=== PATIENT | male | born 1960 | race Caucasian/White ===

== ENCOUNTER 2016-10-23 06:17 | Observation (INO) | payer BC ==
[2016-10-22 12:27] VITALS: BMI 34.5
[~2016-10-23 06:17] MED LIST: ALPRAZolam 0.25 MG TAB PO PRN; ALPRAZolam 0.5 MG TAB PO PRN; ATORVASTATIN 80 MG TAB PO STA; NITROGLYCERIN SL TABS 0.4 MG TAB SUBLINGUAL PRN; SODIUM CHLORIDE 0.9% 1,000 ML in EMPTY BAG 1 BAG IV ONE
[2016-10-23 06:54] VITALS: RESP 18
[2016-10-23 07:21] LABS: Glucose,Whole Blood 204 mg/dL (75-99)
[2016-10-23 07:24] LABS: Basophils # (A) 0.1 k/uL (0-0.2); Basophils % (A) 1 %; CH 31.2; CHCM 34.6; Eosinophils # (A) 0.2 k/uL (0-0.7); Eosinophils % (A) 3 %; HCT 45.5 % (39.0-53.0); HDW 2.55; HGB 15.6 gm/dL (13.0-17.5); Luc # (Auto) 0.13; Luc % (Auto) 2; Lymphocytes # (A) 2.1 k/uL (1.0-4.8); Lymphocytes % (A) 30 %; MCH 31.1 pg (25.0-35.0); MCHC 34.4 g/dL (31.0-37.0); MCV 90.3 fL (80.0-100.0); Mean Platelet Volume 6.5; Monocytes # (A) 0.5 k/uL (0-1.0); Monocytes % (A) 7 %; Neutrophils # (A) 3.9 k/uL (1.3-7.7); Neutrophils % (A) 57 %; RBC 5.04 m/uL (4.30-5.90); RDW 12.5 % (11.5-15.5); WBC 6.9 k/uL (3.8-10.6); WBC (Perox) 6.95
[2016-10-23] MEDS ORDERED: INSULIN LISPRO (humaLOG) 300 UNIT/3 ML VIAL SQ ONE (07:30)
[2016-10-23 07:33] LABS: Anion Gap 10 mmol/L; Blood Urea Nitrogen 10 mg/dL (9-20); Calcium 9.9 mg/dL (8.4-10.2); Carbon Dioxide 26 mmol/L (22-30); Chloride 103 mmol/L (98-107); Glucose 217 mg/dL (74-99); Non-African American GFR(MDRD) >60 (>60 ml/min/1.73 sqM); Potassium 4.4 mmol/L (3.5-5.1); Sodium 139 mmol/L (137-145)
[2016-10-23] MEDS ORDERED: MIDAZOLAM 2 MG/2 ML VIAL IVP ONE (08:21)
[2016-10-23] MEDS ORDERED: LIDOCAINE 2% INJ 20 MG/ML SQ ONE (08:26)
[2016-10-23] MEDS: MIDAZOLAM 2 MG/2 ML VIAL IVP ONE ×2 (08:39→09:25)
[2016-10-23] MEDS ORDERED: BIVALIRUDIN BOLUS 250 MG/50 ML IV ONE (09:14)
[2016-10-23] MEDS ORDERED: BIVALIRUDIN 250 MG in SODIUM CHLORIDE 0.9% 50 ML IV ONE (09:15)
[2016-10-23] MEDS ORDERED: DIAZEPAM 5 MG/ML 2 ML SYRINGE IVP ONE (09:25)
[2016-10-23] MEDS ORDERED: HYDROmorphone 2 MG/ML 1 ML SYRINGE IVP ONE (09:26)
[2016-10-23] MEDS: NITROGLYCERIN 1000MCG/10ML SYRINGE INTRACORON ONE ×2 (09:27→09:38)
[2016-10-23] MEDS ORDERED: niCARdipine Syringe (1,000 mcg/10 mL) INTRACORON ONE (09:39)
[2016-10-23] MEDS ORDERED: CLOPIDOGREL 75 MG TAB PO ONE (09:50)
[2016-10-23] MEDS ORDERED: IOHEXOL 350 MG/ML 100 ML BOTTLE INJ ONE (09:50)
[2016-10-23] MEDS ORDERED: MAG HYDROX/AL HYDROX/SIMETH 30 ML CUP PO PRN (09:53)
[2016-10-23] MEDS ORDERED: ATROPINE SULFATE 0.1 MG/ML 10ML SYRINGE IV PRN (09:53)
[2016-10-23] MEDS ORDERED: ZOLPIDEM 5 MG TAB PO PRN (09:53)
[2016-10-23] MEDS ORDERED: NITROGLYCERIN SL TABS 0.4 MG TAB SUBLINGUAL PRN (09:53)
[2016-10-23] MEDS ORDERED: RX INFO: IV CONTRAST WAS GIVEN 1 EACH MISC MISCELLANE PRN (09:53)
[2016-10-23] MEDS ORDERED: SODIUM CHLORIDE 0.9% 1,000 ML IV SCH (10:00)
[2016-10-23] MEDS ORDERED: SODIUM CHLORIDE 0.9% 1,000 ML IV ONE (13:00)
[2016-10-23] MEDS: INSULIN LISPRO (humaLOG) 300 UNIT/3 ML VIAL SQ SCH ×3 (14:22→21:13)
[2016-10-23 17:16] LABS: Glucose,Whole Blood 241 mg/dL (75-99)
[2016-10-23] MEDS: HYDROmorphone 1 MG/ML 1 ML SYRINGE IVP PRN ×2 (17:57→21:11)
[2016-10-23] MEDS ORDERED: INSULIN GLARGINE 100 UNIT/ML 10 ML VIAL SQ SCH (21:00)
[2016-10-23 21:08] LABS: Glucose,Whole Blood 228 mg/dL (75-99)
[2016-10-23] MEDS: ASPIRIN 81 MG CHEW PO SCH (21:11)
[2016-10-24 05:34] LABS: Basophils % (A) 1 %; CH 31.5; CHCM 34.5; Eosinophils # (A) 0.2 k/uL (0-0.7); Eosinophils % (A) 3 %; HGB 14.8 gm/dL (13.0-17.5); Luc # (Auto) 0.17; Luc % (Auto) 2; Lymphocytes # (A) 2.2 k/uL (1.0-4.8); Lymphocytes % (A) 29 %; MCH 31.5 pg (25.0-35.0); MCHC 34.4 g/dL (31.0-37.0); MCV 91.6 fL (80.0-100.0); Mean Platelet Volume 6.5; Monocytes # (A) 0.5 k/uL (0-1.0); Monocytes % (A) 7 %; Neutrophils # (A) 4.6 k/uL (1.3-7.7); Neutrophils % (A) 59 %; RDW 12.9 % (11.5-15.5); WBC 7.7 k/uL (3.8-10.6)
[2016-10-24 05:51] LABS: Anion Gap 8 mmol/L; Blood Urea Nitrogen 14 mg/dL (9-20); Calcium 9.3 mg/dL (8.4-10.2); Carbon Dioxide 25 mmol/L (22-30); Chloride 103 mmol/L (98-107); Glucose 146 mg/dL (74-99); Non-African American GFR(MDRD) >60 (>60 ml/min/1.73 sqM); Potassium 3.9 mmol/L (3.5-5.1); Sodium 136 mmol/L (137-145)
[2016-10-24 05:53] LABS: Glucose,Whole Blood 150 mg/dL (75-99)
[2016-10-24] MEDS: INSULIN LISPRO (humaLOG) 300 UNIT/3 ML VIAL SQ SCH (06:05)
[2016-10-24 07:02] VITALS: TEMP 97.1
--- NOTE | 2016-10-24 07:10 | CC ---
DATE OF SERVICE: 10/23/2016 CARDIAC CATH AND PERCUTANEOUS CORONARY INTERVENTION PERFORMING PHYSICIAN: Rosendo Us MD, cash application clerk. PROCEDURE PERFORMED: 1. Selective left and right coronary angiogram. 2. SVG angiogram x1. 3. Left internal mammary artery angiogram. 4. Successful stenting of the diagonal branch of the LAD using 2.5 x 23 mm Xience JEZ, which was postdilated using 2.75 mm balloon with good angiographic results. INDICATION: This is a pleasant 56-year-old gentleman who is known to have coronary artery disease and coronary artery bypass grafting with last heart catheterization was performed in 2015 and it sowed at that time occluded LAD and occluded right coronary artery with mild disease involving the left circumflex with patent CARDOSO to LAD as well as occluded vein graft to the RCA, where at that point, the patient underwent successful stenting of the RCA as well as successful stenting of the diagonal branch of the LAD. Lately, he has been experiencing chest discomfort consistent with angina. He was brought today to undergo a heart catheterization. APPROACH: Right common femoral artery. COMPLICATIONS: None. LEVEL OF SEDATION: Moderate with a sedation length about an hour. PROCEDURE DESCRIPTION: After obtaining an informed consent, the patient was brought to the cardiac slab puller. The right common femoral artery was cannulated using micropuncture technique. The micropuncture wire passed easily, then I placed a 6-Burundian sheath in the right common femoral artery. Subsequently, I did selective right and left coronary angiogram using multipurpose catheter for the left coronary system and JR4 for the right coronary artery. I did SVG angiogram to the RCA using JR4 catheter and I did left internal mammary artery angiogram using an IM catheter. After that, I did intervene on the diagonal, please see a separate paragraph for that. SELECTIVE CORONARY ANGIOGRAM: 1. The left main is angiographically normal. It bifurcates into the left circumflex and left anterior descending artery. 2. The left circumflex is a large-caliber vessel and it is a nondominant vessel. The proximal left circumflex appeared to have mild disease only. The mid left circumflex appeared to have mild disease only and gives rise into a large obtuse marginal branch, which seems to be normal. The left circumflex after that is 100% occluded in the AV groove. 3. Left Anterior Descending Artery: The proximal LAD appeared to have mild disease only. The mid LAD is occluded just after the bifurcation of a diagonal, which is a [id number] diagonal with severe disease, seems to be in-stent restenosis. 4. Right Coronary Artery: The right coronary artery is 100% occluded in the proximal portion. CORONARY BYPASS ANGIOGRAM: 1. The SVG to right coronary artery appeared to have severe disease in the proximal portion appeared to be in the range of 70% to 80%. 2. The CARDSOO to LAD is patent. PCI OF THE DIAGONAL: Anticoagulation was initiated using Angiomax. Subsequently, I did exchange my 11 cm 6-Burundian sheath into 23 cm 6-Burundian sheath just to negotiate tortuosity in the iliac. After that, I did engage the left main using JL4 catheter. Subsequently, I did wire the diagonal using a whisper wire. I did balloon angioplasty using 2.5 x 15 mm balloon. After that, I tried to advance 2.5 x 23 mm Xience JEZ but the stent would not cross the proximal part of the LAD, so at that point, I did wire the diagonal using a run-through wire. With a run-through wire, I was able to get the stent across the lesion, where the stent was positioned under fluoroscopy guidance and then it was deployed under 12 atmospheres for 20 seconds. I postdilated that stent using a 2.75 x 15 mm NC balloon. The following angiogram showed good angiographic result without complication and without dissection. CONCLUSION: 1. Severe triple-vessel coronary artery disease. 2. Occluded left anterior descending artery, which is protected by left internal mammary artery. 3. Occluded distal left circumflex in the AV groove after a large first obtuse marginal branch, which seems to be normal. 4. Occluded right coronary artery, which is protected SVG graft to the right coronary artery with severe disease involving the proximal portion of the SVG graft. 5. Severe in-stent restenosis involving a diagonal branch, which is a large-sized diagonal. 6. Successful stenting of the diagonal using 2.5 x 23 mm Xience JEZ with a good angiographic result. POSTPROCEDURE MANAGEMENT: 1. Dual antiplatelet therapy. 2. Risk factor modification. 3. The patient will be scheduled to undergo stenting of the SVG graft to the right coronary artery.
[2016-10-24] MEDS: ASPIRIN 81 MG CHEW PO SCH (08:57)
[2016-10-24] MEDS ORDERED: ATORVASTATIN 80 MG TAB PO SCH (09:00)
[2016-10-24] MEDS ORDERED: LISINOPRIL 20 MG TAB PO SCH (09:00)
[2016-10-24] MEDS ORDERED: CARVEDILOL 3.125 MG TAB PO SCH (09:00)
[2016-10-24] MEDS ORDERED: CLOPIDOGREL 75 MG TAB PO SCH (09:00)
[2016-10-24 10:27] VITALS: BP 140/73; PULSE 69
--- NOTE | 2016-10-24 10:33 | P.DS ---
Providers Date of admission: 10/23/16 22:42 October 232016 Attending physician: Rosendo Us Consults: 10/23/16 09:53 Consult Physician Routine Consulting Provider: [facility] Consult Reason/Comments: Post Interventional patient Do you want consulting provider notified?: Already Contacted Primary care physician: Ernestine Gudino [facility] Hospital Course: This is a pleasant 56-year-old gentleman who was admitted to the hospital yesterday and underwent heart catheterization on successful stenting of the diagonal branch of the LAD with a good angiographic results and without any complication. He denies having any chest pain or discomfort or difficulty breathing or heart racing or fluttering. The patient is going to be discharged home on dual antiplatelet therapy and I will follow-up with the patient next week in the office. The procedure was performed from the right groin which seems to be soft and nontender and without any bruises. Plan - Discharge Summary Discharge Medication List Lisinopril [Prinivil] 20 mg PO QAM 09/30/14 [History] Carvedilol [Coreg] 3.125 mg PO DAILY 06/05/15 [History] Insulin Glargine [Lantus] 60 unit SQ HS 07/26/15 [History] Aspirin 162 mg PO DAILY 10/22/16 [History] Atorvastatin [Lipitor] 80 mg PO DAILY 10/22/16 [History] Clopidogrel [Plavix] 75 mg PO DAILY 10/22/16 [History] Follow up Appointment(s)/Referral(s): Rosendo Us MD [STAFF PHYSICIAN] - 10/28/16 4:00 pm Patient Instructions/Handouts: *[facility] - After Heart Catheterization - Bed And Breakfast Cook Instructions, Heart Healthy Diet (DC), Heart Catheterization (DC ), Coronary Angioplasty (DC)
== END 2016-10-24 10:57 | disposition home or self-care (01) ==
LOC: CATHCVL 06:17 → 6SEL 14:14 → CATHCVL 22:41 → 6SEL 22:42
PROVIDERS: ADMIT Internal Medicine Interventional Cardiology; ATTEND Internal Medicine Interventional Cardiology
DX: I25.119 Atherosclerotic heart disease of native coronary artery with unspecified angina pectoris (principal); E11.9 Type 2 diabetes mellitus without complications; E78.5 Hyperlipidemia, unspecified; I10 Essential (primary) hypertension; I25.810 Atherosclerosis of coronary artery bypass graft(s) without angina pectoris; I25.82 Chronic total occlusion of coronary artery; F17.290 Nicotine dependence, other tobacco product, uncomplicated; Z79.02 Long term (current) use of antithrombotics/antiplatelets; Z79.82 Long term (current) use of aspirin; Z79.899 Other long term (current) drug therapy; Z95.1 Presence of aortocoronary bypass graft; Z95.5 Presence of coronary angioplasty implant and graft
CPT/HCPCS: 93455; 80048 ×2; 85025 ×2; G0378 ×2; C9600; C1769 ×6; C1887; C1725 ×2; C1894; C1874; J2001; J2250; J1170 ×2; Q9967; J0583; 93005

== ENCOUNTER 2016-11-05 07:12 | Day surgery (SDC) | payer BC ==
[2016-10-31 14:57] VITALS: BMI 35.2
[~2016-11-05 07:12] MED LIST changes: +ASPIRIN 325 MG TAB PO STA
[2016-11-05 07:38] LABS: Glucose,Whole Blood 205 mg/dL (75-99)
[2016-11-05] MEDS ORDERED: INSULIN LISPRO (humaLOG) 300 UNIT/3 ML VIAL SQ ONE (07:40)
[2016-11-05] MEDS ORDERED: diphenhydrAMINE 50 MG/ML 1 ML VIAL IVP ONE (09:14)
[2016-11-05] MEDS ORDERED: MIDAZOLAM 2 MG/2 ML VIAL IV ONE (09:16)
[2016-11-05] MEDS ORDERED: LIDOCAINE 2% INJ 20 MG/ML SQ ONE (09:24)
[2016-11-05] MEDS ORDERED: BIVALIRUDIN BOLUS 250 MG/50 ML IV ONE (09:30)
[2016-11-05] MEDS ORDERED: BIVALIRUDIN 250 MG in SODIUM CHLORIDE 0.9% 50 ML IV ONE ×2 (09:32→10:08)
[2016-11-05] MEDS ORDERED: niCARdipine Syringe (1,000 mcg/10 mL) INTRACORON ONE (10:13)
[2016-11-05] MEDS ORDERED: NITROGLYCERIN 1000MCG/10ML SYRINGE INTRACORON ONE (10:14)
[2016-11-05] MEDS ORDERED: CLOPIDOGREL 75 MG TAB PO ONE (10:17)
[2016-11-05] MEDS ORDERED: IOHEXOL 350 MG/ML 100 ML BOTTLE INJ ONE (10:17)
[2016-11-05] MEDS ORDERED: HYDROmorphone 1 MG/ML 1 ML SYRINGE ONE ×3 (10:38→16:34)
--- NOTE | 2016-11-05 11:14 | PTCA ---
DATE OF SERVICE: 11/05/2016 PERFORMING PHYSICIAN: Rosendo Us M.D., Music Copyist. PROCEDURE PERFORMED: 1. Selective angiogram of the SVG to RCA. 2. Successful stenting of the ostial/proximal SVG to RCA using 3.25 x 18 and 3.5 x 12 mm Xience JEZ with a good angiographic result. 3. Selective right common femoral artery angiogram. INDICATION: This is a pleasant 56-year-old gentleman who is known to have coronary artery disease, who underwent a heart catheterization recently and was found to have severe disease involving the SVG to the RCA. He was brought today to undergo a PCI of that graft. APPROACH: Right common femoral artery. COMPLICATIONS: None. LEVEL OF SEDATION: Moderate with a sedation length of an hour. PROCEDURE DESCRIPTION: After obtaining an informed consent, the patient was brought to the cardiac laborer concrete plant. Right common femoral artery was cannulated using micropuncture technique, the micropuncture wire passed easily, then I placed a 6 Hungarian sheath in the right common femoral artery. Subsequently, I started anticoagulation using Angiomax. After that, I did engage the SVG to RCA using a multipurpose catheter. I did selective right SVG angiogram. After that, I did wire that graft short using a short whisper wire. After that, I did balloon angioplasty using 2.5 x 12 mm balloon which was inflated twice in the graft. Subsequently, I did deploy 3.25 x 18 mm and 3.5 x 12 mm stents in the ostial/proximal part of the graft. I tried to post dilate using 3.5 balloon but the balloon will not cross the proximal part of the stent because the stent was not well deployed. At that point, I tried 30 x 12 mm semicompliant balloon. Then I was able to advance 3.5 noncompliant balloon, where the balloon was inflated under 28 atmospheres for 20 seconds and I was able to deploy the stent. There was some residual stenosis, I will say is about 10% to 20% only. Good flow in the SVG was seen. POSTPROCEDURE MANAGEMENT: 1. Dual antiplatelet therapy. 2. Risk factors modification. 3. Follow up with the patient.
[2016-11-05] MEDS ORDERED: SODIUM CHLORIDE 0.9% 1,000 ML IV SCH (12:15)
[2016-11-05 13:26] LABS: Glucose,Whole Blood 140 mg/dL (75-99)
[2016-11-05] MEDS ORDERED: HYDROcodone/APAP 5-325MG 1 EACH TAB PO STA (19:27)
--- NOTE | 2016-11-05 20:02 | LTR ---
November 05, 2016 RE: Davis Riley Ronnie Dear Ernestine: Mr. Davis Riley underwent successful stenting of the vein graft to the right coronary artery with a good angiographic result and without any complication. I want to thank you for allowing me to participate in his care. Please do not hesitate to call if you have any question or concerns. Sincerely, AMANUEL LAGUNA MD
[2016-11-05 20:55] LABS: Glucose,Whole Blood 265 mg/dL (75-99)
[2016-11-05] MEDS ORDERED: INSULIN GLARGINE 100 UNIT/ML 10 ML VIAL SQ SCH (21:00)
[2016-11-05 22:22] VITALS: RESP 18
[2016-11-06 05:44] LABS: Glucose,Whole Blood 161 mg/dL (75-99)
[2016-11-06 06:41] LABS: Non-African American GFR(MDRD) >60 (>60 ml/min/1.73 sqM)
[2016-11-06] MEDS ORDERED: CARVEDILOL 3.125 MG TAB PO SCH (07:30)
[2016-11-06] MEDS ORDERED: CLOPIDOGREL 75 MG TAB PO SCH (09:00)
[2016-11-06] MEDS ORDERED: ASPIRIN 81 MG CHEW PO SCH (09:00)
[2016-11-06] MEDS ORDERED: LISINOPRIL 20 MG TAB PO SCH (09:00)
[2016-11-06] MEDS ORDERED: ATORVASTATIN 80 MG TAB PO SCH (09:00)
[2016-11-06 09:28] VITALS: BP 135/73; PULSE 63; TEMP 96.8
[2016-11-06 10:08] LABS: Basophils # (A) 0.1 k/uL (0-0.2); Basophils % (A) 1 %; CH 31.8; CHCM 35.1; Eosinophils # (A) 0.2 k/uL (0-0.7); Eosinophils % (A) 2 %; HCT 45.8 % (39.0-53.0); HDW 2.58; HGB 16.3 gm/dL (13.0-17.5); Luc # (Auto) 0.11; Luc % (Auto) 2; Lymphocytes % (A) 28 %; MCH 32.4 pg (25.0-35.0); MCHC 35.6 g/dL (31.0-37.0); Mean Platelet Volume 6.8; Monocytes # (A) 0.5 k/uL (0-1.0); Monocytes % (A) 7 %; Neutrophils # (A) 4.3 k/uL (1.3-7.7); Neutrophils % (A) 60 %; RBC 5.04 m/uL (4.30-5.90); RDW 12.6 % (11.5-15.5); WBC 7.1 k/uL (3.8-10.6); WBC (Perox) 6.83
[2016-11-06 10:23] LABS: Anion Gap 12 mmol/L; Blood Urea Nitrogen 14 mg/dL (9-20); Calcium 9.8 mg/dL (8.4-10.2); Carbon Dioxide 18 mmol/L (22-30); Chloride 103 mmol/L (98-107); Glucose 211 mg/dL (74-99); Non-African American GFR(MDRD) >60 (>60 ml/min/1.73 sqM); Potassium 4.6 mmol/L (3.5-5.1); Sodium 133 mmol/L (137-145)
--- NOTE | 2016-11-07 09:34 | DS ---
DATE OF ADMISSION: 11/05/2016 DATE OF DISCHARGE: 11/06/2016 BRIEF HISTORY: This is a pleasant 56-year-old gentleman who was admitted to the hospital yesterday and underwent successful stenting of ostial/proximal SVG to RCA with a good angiographic result and without any complications, from right groin approach. From a cardiovascular-stand point of view, he is doing good and he is asymptomatic. The right groin is soft and nontender and without any bruises. The patient is going to be discharged home on dual antiplatelet therapy and statin. I will follow up with the patient in a week in the office.
== END 2016-11-06 10:35 | disposition home or self-care (01) ==
LOC: CATHCVL 07:12 → 6SEL 10:19 → CATHCVL 11-06 10:35
PROVIDERS: ATTEND Internal Medicine Interventional Cardiology
DX: I25.10 Atherosclerotic heart disease of native coronary artery without angina pectoris (principal); Z95.5 Presence of coronary angioplasty implant and graft; Z95.1 Presence of aortocoronary bypass graft; E78.5 Hyperlipidemia, unspecified; I10 Essential (primary) hypertension; R07.89 Other chest pain; I73.9 Peripheral vascular disease, unspecified; E66.9 Obesity, unspecified; Z68.36 Body mass index [BMI] 36.0-36.9, adult; Z98.84 Bariatric surgery status; E11.9 Type 2 diabetes mellitus without complications; Z79.02 Long term (current) use of antithrombotics/antiplatelets; Z79.82 Long term (current) use of aspirin; Z79.4 Long term (current) use of insulin; Z79.899 Other long term (current) drug therapy; Z88.6 Allergy status to analgesic agent; Z87.891 Personal history of nicotine dependence
CPT/HCPCS: 80048; 82565; 85025; 99152; 99153; C9604; C1769 ×5; C1887; C1725 ×3; C1894; C1874; J2001; J2250; J1200; Q9967; J1170; J0583; 93454

== ENCOUNTER 2017-05-23 09:07 | Day surgery (SDC) | payer BC ==
[2017-05-23 10:28] LABS: Glucose,Whole Blood 142 mg/dL (75-99)
[2017-05-23] MEDS ORDERED: LIDOCAINE 2% INJ 20 MG/ML (20 ML MDV) ONE (10:38)
[2017-05-23] MEDS ORDERED: MIDAZOLAM 2 MG/2 ML VIAL ONE ×2 (10:46→11:09)
[2017-05-23] MEDS ORDERED: MIDAZOLAM 2 MG/2 ML VIAL IV ONE ×2 (10:53→11:10)
[2017-05-23] MEDS ORDERED: LIDOCAINE 2% INJ 20 MG/ML SQ ONE (10:58)
[2017-05-23] MEDS ORDERED: fentaNYL (PF) 50 MCG/ML 2 ML AMP ONE (11:00)
[2017-05-23] MEDS ORDERED: fentaNYL (PF) 50 MCG/ML 2 ML AMP IV ONE (11:02)
[2017-05-23] MEDS ORDERED: BIVALIRUDIN 250 MG in SODIUM CHLORIDE 0.9% 50 ML IV ONE (11:30)
[2017-05-23] MEDS ORDERED: BIVALIRUDIN BOLUS 250 MG/50 ML IV ONE (11:30)
[2017-05-23] MEDS ORDERED: niCARdipine 25 MG/10 ML VIAL ONE (11:38)
[2017-05-23] MEDS ORDERED: CLOPIDOGREL 75 MG TAB ONE (11:54)
[2017-05-23] MEDS ORDERED: CLOPIDOGREL 75 MG TAB PO ONE (11:56)
[2017-05-23] MEDS ORDERED: IOHEXOL 350 MG/ML 125ML BOTTLE INJ ONE (11:57)
[2017-05-23] MEDS ORDERED: RX INFO: IV CONTRAST WAS GIVEN 1 EACH MISC MISCELLANE PRN (12:03)
[2017-05-23] MEDS ORDERED: ZOLPIDEM 5 MG TAB PO PRN (12:03)
[2017-05-23] MEDS ORDERED: NITROGLYCERIN SL TABS 0.4 MG TAB SUBLINGUAL PRN (12:03)
[2017-05-23] MEDS ORDERED: ATROPINE SULFATE 0.1 MG/ML 10ML SYRINGE IV PRN (12:03)
[2017-05-23] MEDS ORDERED: MAG HYDROX/AL HYDROX/SIMETH 30 ML CUP PO PRN (12:03)
[2017-05-23] MEDS ORDERED: SODIUM CHLORIDE 0.9% 1,000 ML IV SCH (12:15)
--- NOTE | 2017-05-23 12:47 | CC ---
CARDIAC CATHETERIZATION REPORT DATE OF SERVICE: 05/23/2017 PERFORMING PHYSICIAN: Rosendo Us MD, Flat Sheet Maker. PROCEDURE PERFORMED: 1. Selective left and right coronary angiogram. 2. CARDOSO to LAD angiogram. 3. SVG to RCA angiogram. 4. Successful stenting of the SVG to RCA using 3.5 x 24 mm Promus Premier drug-eluting stent with good angiographic results. INDICATION: This is a very pleasant 56-year-old gentleman who is known to have coronary artery disease with the last heart catheterization in October of 2016, revealed severe 2-vessel coronary artery disease with occluded LAD and occluded RCA with patent CARDOSO to LAD as well as severe disease involving the SVG to RCA. He was found also to have severe disease involving the diag branch of the LAD. The patient underwent successful stenting of the diag as well as successful stenting of the SVG to RCA with good angiographic results. Lately, he has been experiencing intermittent episodes of chest discomfort concerning for angina. In view of that, he was brought to undergo a heart catheterization. APPROACH: Right common femoral artery. COMPLICATION: None. LEVEL OF SEDATION: Moderate with sedation length of 62 minutes. PROCEDURE DESCRIPTION: After obtaining an informed consent, the patient was brought to the Cardiac Food Service Team Member. The right common femoral artery was cannulated using micropuncture technique, the micropuncture wire passed easily, then I placed a 6-Korean sheath in the right common femoral artery. Subsequently, I did selective left and right coronary angiogram using JL4 and JR4 catheters. After that, I did SVG to RCA angiogram using multipurpose catheter and CARDOSO to LAD angiogram using an IM catheter. After that, I decided to intervene on the SVG to RCA. Please see a separate paragraph for that. SELECTIVE CORONARY ANGIOGRAM: 1. The left main is angiographically normal. It bifurcates into a left circumflex and left anterior descending artery. 2. Left circumflex is a large caliber vessel and is a nondominant vessel. The proximal left circumflex appeared to have mild disease only. The mid left circumflex has mild disease only. The left circumflex after that is occluded just after the bifurcation of a large OM branch which seems to be angiographically normal. 3. THE LEFT ANTERIOR DESCENDING ARTERY: The proximal LAD is angiographically normal. It gives rise into a large diag branch which is stented and the stent is patent. The LAD after that is 100% occluded. 4. The right coronary artery is 100% occluded and chronically occluded in the proximal to midportion. CORONARY BYPASS ANGIOGRAM: 1. The CARDOSO to LAD is patent. 2. The SVG to RCA has a critical disease in the proximal portion, which seems to be in- stent restenosis. PCI OF THE SVG TO RCA: 1. Anticoagulation was initiated using Angiomax. Subsequently. I took multipurpose guide and the SVG to RCA was engaged. A whisper wire was used to wire that SVG. After that, I did PTCA ballooning using a 3.0 mm noncompliant balloon and subsequently 3.0 AngioSculpt balloon. After that, I deployed 3.5 x 24 mm Promus Premier drug-eluting stent where the stent was positioned under fluoroscopy guidance and deployed under 12 atmospheres for 30 seconds. Subsequently, I postdilated the stent using 3.75 NC balloon which was inflated under 20 atmospheres for 30 seconds x2. 2. The procedure was completed without any complication. CONCLUSION: 1. Normal left main coronary artery. 2. Chronic total occlusion of the distal left circumflex in the atrioventricular groove, which gives rise into a large obtuse marginal branch which seems to have mild disease only. 3. Chronic total occlusion of the left anterior descending artery which is protected by CARDOSO. 4. Chronic total occlusion of the right coronary artery which is protected by saphenous vein graft, which has critical in-stent restenosis. 5. Successful stenting of the saphenous vein graft to right coronary artery as described above. POSTPROCEDURE MANAGEMENT: Maximize medical treatment and follow up with the patient. MMODL / IJN: [id number] /
[2017-05-23 13:40] VITALS: BMI 35.9
[2017-05-23] MEDS: Acetaminophen-Codeine 300-30mg TAB PO PRN ×2 (14:00→20:05)
[2017-05-23] MEDS ORDERED: HYDROmorphone 0.5 MG/0.5 ML SYRINGE IVP STA (15:45)
[2017-05-23 17:20] LABS: Glucose,Whole Blood 259 mg/dL (75-99)
[2017-05-23] MEDS: INSULIN LISPRO (humaLOG) 300 UNIT/3 ML VIAL SQ SCH ×2 (18:06→21:21)
[2017-05-23] MEDS ORDERED: INSULIN GLARGINE 100 UNIT/ML 10 ML VIAL SQ SCH (21:00)
[2017-05-23 21:30] LABS: Glucose,Whole Blood 202 mg/dL (75-99)
[2017-05-24 06:15] LABS: Glucose,Whole Blood 139 mg/dL (75-99)
[2017-05-24] MEDS: INSULIN LISPRO (humaLOG) 300 UNIT/3 ML VIAL SQ SCH (06:34)
[2017-05-24 06:44] LABS: Basophils # (A) 0.1 k/uL (0-0.2); Basophils % (A) 1 %; CH 31.5; CHCM 32.9; Eosinophils # (A) 0.2 k/uL (0-0.7); Eosinophils % (A) 3 %; HCT 47.2 % (39.0-53.0); HDW 2.27; HGB 15.2 gm/dL (13.0-17.5); Luc # (Auto) 0.11; Luc % (Auto) 2; Lymphocytes # (A) 2.2 k/uL (1.0-4.8); Lymphocytes % (A) 31 %; MCH 30.9 pg (25.0-35.0); MCHC 32.2 g/dL (31.0-37.0); Mean Platelet Volume 6.9; Monocytes # (A) 0.5 k/uL (0-1.0); Monocytes % (A) 7 %; Neutrophils # (A) 3.9 k/uL (1.3-7.7); Neutrophils % (A) 56 %; RBC 4.92 m/uL (4.30-5.90); WBC 6.9 k/uL (3.8-10.6)
[2017-05-24 06:56] LABS: Anion Gap 8 mmol/L; Blood Urea Nitrogen 13 mg/dL (9-20); Calcium 9.4 mg/dL (8.4-10.2); Carbon Dioxide 25 mmol/L (22-30); Chloride 104 mmol/L (98-107); Glucose 158 mg/dL (74-99); Non-African American GFR(MDRD) >60 (>60 ml/min/1.73 sqM); Potassium 4.1 mmol/L (3.5-5.1); Sodium 137 mmol/L (137-145)
[2017-05-24 08:31] VITALS: BP 158/70; PULSE 71; RESP 16; TEMP 98.2
[2017-05-24] MEDS ORDERED: CARVEDILOL 3.125 MG TAB PO SCH (09:00)
[2017-05-24] MEDS ORDERED: LISINOPRIL 20 MG TAB PO SCH (09:00)
[2017-05-24] MEDS ORDERED: ATORVASTATIN 80 MG TAB PO SCH (09:00)
[2017-05-24] MEDS ORDERED: CLOPIDOGREL 75 MG TAB PO SCH (09:00)
[2017-05-24] MEDS ORDERED: ASPIRIN 81 MG PO SCH (09:00)
--- NOTE | 2017-05-24 10:45 | P.DS ---
Providers Date of admission: 05/23/2017 Attending physician: Rosendo Us Consults: 05/23/17 12:03 Consult Physician Routine Consulting Provider: [facility] Consult Reason/Comments: Post Interventional patient Do you want consulting provider notified?: Already Contacted Primary care physician: Ernestine Gudino [facility] Course: This is a pleasant 56-year-old gentleman who was a patient of mine in the office who was admitted to the hospital yesterday and underwent a heart catheterization for recurrent chest discomfort concerning for angina. He was found to have critical disease involving the proximal SVG to RCA which was in-stent restenosis. He underwent successful stenting of the SVG to RCA with a good angiographic results and without any complication. I'll follow-up with the patient today he is doing good and he is asymptomatic. The right groin is soft and nontender and without any bruises. The patient is going to discharge home on dual antiplatelet and statin and I'll follow-up with the patient next week in the office. Plan - Discharge Summary Discharge Rx Participant: No New Discharge Prescriptions: Continue Lisinopril [Prinivil] 20 mg PO QAM Carvedilol [Coreg] 3.125 mg PO DAILY Insulin Glargine [Lantus] 60 unit SQ HS Clopidogrel [Plavix] 75 mg PO DAILY Atorvastatin [Lipitor] 80 mg PO DAILY Aspirin 162 mg PO DAILY Acetaminophen-Codeine 300-30mg [Tylenol w/codeine #3] 2 tab PO Q4H PRN PRN Reason: Mild To Moderate Pain Discharge Medication List Lisinopril [Prinivil] 20 mg PO QAM 09/30/14 [History] Carvedilol [Coreg] 3.125 mg PO DAILY 06/05/15 [History] Insulin Glargine [Lantus] 60 unit SQ HS 07/26/15 [History] Aspirin 162 mg PO DAILY 10/22/16 [History] Atorvastatin [Lipitor] 80 mg PO DAILY 10/22/16 [History] Clopidogrel [Plavix] 75 mg PO DAILY 10/22/16 [History] Acetaminophen-Codeine 300-30mg [Tylenol w/codeine #3] 2 tab PO Q4H PRN 05/23/17 [History] Follow up Appointment(s)/Referral(s): Rosendo Us MD [STAFF PHYSICIAN] - 1 Week Patient Instructions/Handouts: Left Heart Catheterization (DC)
== END 2017-05-24 11:07 | disposition home or self-care (01) ==
LOC: CATHCVL 09:07 → 6SEL 11:59 → CATHCVL 05-24 11:07
PROVIDERS: ATTEND Internal Medicine Interventional Cardiology
DX: T82.855A Stenosis of coronary artery stent, initial encounter (principal); I25.720 Atherosclerosis of autologous artery coronary artery bypass graft(s) with unstable angina pectoris; I25.110 Atherosclerotic heart disease of native coronary artery with unstable angina pectoris; I25.82 Chronic total occlusion of coronary artery; I10 Essential (primary) hypertension; E78.00 Pure hypercholesterolemia, unspecified; E66.9 Obesity, unspecified; E11.9 Type 2 diabetes mellitus without complications; Z95.1 Presence of aortocoronary bypass graft; Z95.5 Presence of coronary angioplasty implant and graft; Z79.02 Long term (current) use of antithrombotics/antiplatelets; Z79.82 Long term (current) use of aspirin; Z79.4 Long term (current) use of insulin; Z79.899 Other long term (current) drug therapy; Z88.6 Allergy status to analgesic agent; F17.290 Nicotine dependence, other tobacco product, uncomplicated
CPT/HCPCS: 93455; 80048; 85025; 83036; C9604; C1769 ×4; C1887; C1725 ×3; C1894; C1874 ×2; J2001; J2250; J3010; J0583; Q9967; J1170

== ENCOUNTER 2018-01-08 07:56 | Day surgery (SDC) | payer BC ==
[2018-01-05 12:17] VITALS: BMI 35.2
[~2018-01-08 07:56] MED LIST changes: -ALPRAZolam 0.25 MG TAB PO PRN; -ALPRAZolam 0.5 MG TAB PO PRN; -ASPIRIN 325 MG TAB PO STA; -ATORVASTATIN 80 MG TAB PO STA; +DEXAMETHASONE SOD PHOSPHATE 10 MG/ML 1 ML VIAL IV ONE; +HYDROmorphone 0.5 MG/0.5 ML SYRINGE IVP PRN; +LACTATED RINGERS 1,000 ML IV SCH; -NITROGLYCERIN SL TABS 0.4 MG TAB SUBLINGUAL PRN; +ONDANSETRON 4 MG/2 ML VIAL IVP ONE; +OXYMETAZOLINE 0.05% NASL SPRAY 1 SPRAY BOTTLE NASAL SCH; -SODIUM CHLORIDE 0.9% 1,000 ML in EMPTY BAG 1 BAG IV ONE
[2018-01-08] MEDS ORDERED: LIDOCAINE 1% 20 ML VIAL (10MG/ML) FOR IV START INTRADERMA ONE (09:08)
[2018-01-08 09:13] LABS: Glucose,Whole Blood 172 mg/dL (75-99)
[2018-01-08] MEDS ORDERED: FAMOTIDINE 20 MG/2 ML VIAL IV ONE (09:13)
[2018-01-08] MEDS ORDERED: PROPOFOL 10 MG/ML 20 ML VIAL IV ONE (09:33)
[2018-01-08] MEDS ORDERED: MIDAZOLAM 2 MG/2 ML VIAL ONE (09:33)
[2018-01-08] MEDS ORDERED: fentaNYL (PF) 50 MCG/ML 2 ML AMP ONE (09:33)
[2018-01-08] MEDS ORDERED: SUCCINYLCHOLINE CHLORIDE VIAL 200 MG/10 ML VIAL IV ONE (09:33)
[2018-01-08] MEDS ORDERED: LIDOCAINE 1% INJ 10MG/ML (20 ML MDV) ONE (09:33)
[2018-01-08] MEDS ORDERED: ePHEDrine SULFATE/0.9% NACL/PF 50 MG/5 ML SYRINGE IV ONE (09:33)
[2018-01-08] MEDS ORDERED: FLUORESCEIN STRIPS 1 MG STRIP MISCELLANE ONE (10:02)
[2018-01-08] MEDS ORDERED: EPINEPHrine 1 MG/ML (MDV) 30 ML VIAL TOPICAL ONE (10:02)
[2018-01-08] MEDS ORDERED: LIDOCAINE 1%-EPI 1:100,000 20 ML VIAL SQ ONE ×2 (10:02)
[2018-01-08] MEDS ORDERED: BUPIVACAINE (PF) 0.5% 30 ML VIAL SQ ONE ×2 (10:03)
[2018-01-08] MEDS ORDERED: SILVER NITRATE APPLICATOR 1 EACH STICK..EA. TOPICAL ONE (10:03)
[2018-01-08 10:21] VITALS: TEMP 96.8
[2018-01-08 10:24] LABS: Glucose,Whole Blood 184 mg/dL (75-99)
--- NOTE | 2018-01-08 10:24 | P.OP ---
Date of Procedure: 01/08/18 Preoperative Diagnosis: Recurring epistaxis recurring epistaxis right nasal septal lesion Postoperative Diagnosis: Same Procedure(s) Performed: Nasal endoscopy, bilateral, with removal of a right nasal septal mass and associated cauterization for recurring epistaxis. Anesthesia: RADHA Surgeon: Sly Marin Estimated Blood Loss (ml): 0 Pathology: none sent Condition: stable Disposition: PACU Indications for Procedure: On his this patient has had recurring epistaxis primarily right-sided. The patient was on Plavix because of his cardiac stents. He was found have a lesion on the right side with recurring epistaxis and nasal endoscopy, removal of this right nasal lesion and cauterization was recommended. Operative Findings: Right nasal lesion. Septal spur on the left., Friable blood vessels right side Description of Procedure: Patient was taken to the operative room and placed in the supine position. A general inhalation anesthetic was administered the patient by mask and subsequently intubated with a cuffed endotracheal tube by the department of anesthesia with a functioning IV line in place. Patient was monitored throughout the entire case by the department of anesthesia. The septum was injected with lidocaine 1% and Marcaine. We evaluated the nose with a 0 and 30 endoscope bilaterally making 3 passes along the floor the nose underneath the middle turbinate and superiorly. There was a left septal spur seen. There is a right nasal septal lesion resembling a hemangioma that is to be removed. Friable blood vessels were noted on the right anterior septum and midportion septal region. We remove the lesion on the right side with a up-biting [place]. We then did selective cauterization of the right anterior and posterior septum in light of these friable blood vessels. We did not do any cauterization on the contralateral side. We only cauterized on the right. The patient tolerated this well and follow-up will be in the office in 1 week. Flavio was placed.
[2018-01-08 10:32] VITALS: RESP 16
[2018-01-08 11:13] VITALS: BP 142/67; PULSE 64
== END 2018-01-08 11:25 | disposition home or self-care (01) ==
LOC: OR 07:56
PROVIDERS: ATTEND Otolaryngology
DX: D18.09 Hemangioma of other sites (principal); J34.89 Other specified disorders of nose and nasal sinuses; J34.2 Deviated nasal septum; I25.10 Atherosclerotic heart disease of native coronary artery without angina pectoris; E11.9 Type 2 diabetes mellitus without complications; Z79.82 Long term (current) use of aspirin; I51.9 Heart disease, unspecified; Z95.5 Presence of coronary angioplasty implant and graft; Z87.891 Personal history of nicotine dependence; Z95.1 Presence of aortocoronary bypass graft; Z79.899 Other long term (current) drug therapy; Z79.4 Long term (current) use of insulin; I10 Essential (primary) hypertension; E78.5 Hyperlipidemia, unspecified; Z88.6 Allergy status to analgesic agent
CPT/HCPCS: 88305; 31237; 31238; J2250; J0330; J1100; J2405; J2001; J3010; J2704

== ENCOUNTER → 2018-02-05 | Day surgery (SDC) | payer BC ==
[2018-02-02 11:22] VITALS: BMI 35.2
[~2018-02-05] MED LIST changes: +BUPIVACAINE (PF) 0.5% 30 ML VIAL SQ ONE; +DEXAMETHASONE SOD PHOS (MDV) 100 MG/10 ML VIAL ONE; +DEXAMETHASONE SOD PHOSPHATE 4 MG/ML 1 ML VIAL IV ONE; +EPINEPHrine 1 MG/ML (MDV) 30 ML VIAL TOPICAL ONE; +FAMOTIDINE 20 MG/2 ML VIAL IV ONE; +FLUORESCEIN STRIPS 1 MG STRIP MISCELLANE ONE; +LACTATED RINGERS 1,000 ML IV ONE; +LIDOCAINE 1% 20 ML VIAL (10MG/ML) FOR IV START INTRADERMA ONE; +LIDOCAINE 1% INJ 10MG/ML (20 ML MDV) ONE; +LIDOCAINE 1%-EPI 1:100,000 20 ML VIAL SQ ONE; +MIDAZOLAM 2 MG/2 ML VIAL ONE; -OXYMETAZOLINE 0.05% NASL SPRAY 1 SPRAY BOTTLE NASAL SCH; +PROPOFOL 10 MG/ML 20 ML VIAL IV ONE; +Pre Op ABX Message 1 EACH MISC MISCELLANE ONE; +SUCCINYLCHOLINE CHLORIDE VIAL 200 MG/10 ML VIAL IV ONE; +ePHEDrine SULFATE/0.9% NACL/PF 50 MG/5 ML SYRINGE IV ONE; +fentaNYL (PF) 50 MCG/ML 2 ML AMP ONE
[2018-02-05] MEDS: OXYMETAZOLINE 0.05% NASL SPRAY 1 SPRAY BOTTLE NASAL ONE ×5 (08:53→09:14)
[2018-02-05 08:54] VITALS: RESP 16
[2018-02-05 09:09] LABS: Glucose,Whole Blood 173 mg/dL (75-99)
[2018-02-05 10:36] VITALS: TEMP 97.4
--- NOTE | 2018-02-05 10:40 | P.OP ---
Date of Procedure: 02/05/18 Preoperative Diagnosis: Recurring epistaxis Postoperative Diagnosis: Same Right septal ulcer Procedure(s) Performed: Diagnostic and therapeutic nasal endoscopy with nasal packing utilizing nasal pore Anesthesia: RADHA Surgeon: Sly Marin Estimated Blood Loss (ml): 0 Pathology: none sent Condition: stable Disposition: PACU Indications for Procedure: This patient has a nonhealing ulcerative lesion right nose with recurring bleeding as the patient is on Coumadin. Endoscopy and control of this bleeding has been recommended. Operative Findings: Patient has a ulcerative lesion right anterior septum left septal deviation is noted. Description of Procedure: Patient was taken to the operative room and placed in the supine position. A general inhalation anesthetic was administered to the patient by mask and subsequently intubated with a cuffed endotracheal tube the department of anesthesia with a functioning IV line in place. Patient was monitored throughout the entire case by the department of anesthesia. The use of nasal endoscopy the entire nose was evaluated anteriorly to posteriorly superiorly to inferiorly. There is a left septal deviation with a septal spur noted. There is an ulcerative area of the right anterior septum. This area has a large amount of crusting and scabbing present. After a thorough evaluation we utilized the nasal pore packing bilaterally. The patient tolerated this well and follow-up will be in the office in 1 week. Is important that we diminished airflow through the nose to allow the base of the ulcer to heal. There is no evidence of a septal perforation at this time.
[2018-02-05 11:49] VITALS: BP 136/70; PULSE 71
== END | disposition home or self-care (01) ==
LOC: OR 08:22
PROVIDERS: ATTEND Otolaryngology
DX: R04.0 Epistaxis (principal); Z79.01 Long term (current) use of anticoagulants; J34.2 Deviated nasal septum; J34.0 Abscess, furuncle and carbuncle of nose; J34.89 Other specified disorders of nose and nasal sinuses; I11.9 Hypertensive heart disease without heart failure; E11.9 Type 2 diabetes mellitus without complications; Z79.4 Long term (current) use of insulin; Z95.1 Presence of aortocoronary bypass graft; Z95.5 Presence of coronary angioplasty implant and graft; Z79.02 Long term (current) use of antithrombotics/antiplatelets; Z79.82 Long term (current) use of aspirin; Z79.899 Other long term (current) drug therapy; Z88.6 Allergy status to analgesic agent
CPT/HCPCS: 31231; J2250; J0330; J1100 ×2; J2405; J2001; J3010; J2704

== ENCOUNTER 2019-09-09 15:03 | Inpatient (IN) | payer BC ==
[2019-09-09] MEDS ORDERED: MORPHINE SULFATE 4 MG/ML SYRINGE IV STA (15:19)
[2019-09-09] MEDS ORDERED: NITROGLYCERIN SL TABS 0.4 MG TAB SUBLINGUAL STA (15:19)
--- NOTE | 2019-09-09 15:28 | ED ---
General Adult HPI - General Chief complaint: Chest Pain Stated complaint: Chest pain, lt arm pain Time Seen by Provider: 09/09/19 15:14 Source: patient, RN notes reviewed, old records reviewed Mode of arrival: wheelchair Limitations: no limitations - History of Present Illness Initial comments: 59-year-old male history of CAD presenting with several weeks of left-sided chest pressure and heaviness. He states that the symptoms have worsened over the past 2 days. He states symptoms are both at rest and with exertion, not specifically worsened by exertion. He reports some cough which is productive of sputum. No fever but he has had chills. Pain radiates to his left arm and left neck. He had bypass surgery approximately 10 years ago and has had multiple stents placed. He states he is on blood thinners but is uncertain what medications he is currently taking. No significant abdominal pain. No vomiting. He Is a current smoker. - Related Data Home Medications Medication Instructions Recorded Confirmed Lisinopril [Prinivil] 20 mg PO QAM 09/30/14 02/05/18 Carvedilol [Coreg] 3.125 mg PO QAM 06/05/15 02/05/18 Insulin Glargine [Lantus] 100 unit SQ HS 07/26/15 02/05/18 Aspirin 81 mg PO QAM 10/22/16 02/05/18 Atorvastatin [Lipitor] 80 mg PO QAM 10/22/16 02/05/18 Previous Rx's Medication Instructions Recorded Amoxicillin 500 mg PO Q12H #40 capsule 01/08/18 Allergies Allergy/AdvReac Type Severity Reaction Status Date / Time naproxen sodium [From Aleve] Allergy Rash/Hives Verified 09/09/19 15:16 nitroglycerin Allergy Unknown Verified 09/09/19 15:29 [From Nitrostat] Review of Systems ROS Statement: Those systems with pertinent positive or pertinent negative responses have been documented in the HPI. ROS Other: All systems not noted in ROS Statement are negative. Past Medical History Past Medical History: Coronary Artery Disease (CAD), Chest Pain / Angina, Diabetes Mellitus, Hyperlipidemia, Hypertension, Osteoarthritis (OA) Additional Past Medical History / Comment(s): RECURRENT EPISTAXIS History of Any Multi-Drug Resistant Organisms: None Reported Past Surgical History: Bariatric Surgery, Coronary Bypass/CABG, Heart C atheterization With Stent Additional Past Surgical History / Comment(s): CABG 2009-10 vessel, Cervical surgery C4-5 and C5-6, Joe Knee Arthroscopy, 2015 STENTS X3, Sleeve Gastrectomy 2014, PTCA W/ STENT X1 10/23/16. Stents X2 11/05/16 and X1 05-22-17 ,PRIOR SX FOR RECURRENT EPISTAXIS Past Anesthesia/Blood Transfusion Reactions: No Reported Reaction Date of Last Stent Placement:: 05/22/17 Past Psychological History: No Psychological Hx Reported Smoking Status: Former smoker Past Alcohol Use History: None Reported Past Drug Use History: None Reported - Past Family History Mother Family Medical History: Cancer Additional Family Medical History / Comment(s): bone cancer-mother at age 72yrs. Father Family Medical History: Cancer Additional Family Medical History / Comment(s): brain cancer-father at age 52yrs. General Exam Limitations: no limitations General appearance: alert, in no apparent distress Head exam: Present: atraumatic, normocephalic Eye exam: Present: normal appearance, PERRL ENT exam: Present: normal exam Neck exam: Present: normal inspection. Absent: tenderness, meningismus Respiratory exam: Present: normal lung sounds bilaterally. Absent: respiratory distress, wheezes Cardiovascular Exam: Present: regular rate, normal rhythm GI/Abdominal exam: Present: soft, tenderness. Absent: distended, guarding, rebound, rigid Extremities exam: Present: normal inspection, normal capillary refill. Absent: pedal edema, calf tenderness Neurological exam: Present: alert, oriented X3, CN II-XII intact. Absent: motor sensory deficit Psychiatric exam: Present: normal affect, normal mood Skin exam: Present: warm, dry, intact. 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 Occurring both at rest and with exertion. Left upper chest pressure and tightness. Patient states this is similar to previous episodes of chest pain and myocardial infarctions in the past. He has an EKG showing sinus rhythm with no ST segment elevation. Chest x-ray consistent with COPD reactive airway, no focal pneumonia. He has a mild leukocytosis 10.7, stable hemoglobin of 17. N ormal electrolytes, glucose is elevated with history of diabetes currently on insulin. He has a negative troponin. Negative d-dimer, negative BMP. He will be initiated on heparin and admitted with neurology on consult. Serial cardiac enzymes will be obtained. Case is discussed with the admitting physician Dr. Clay - Lab Data Result diagrams: 09/09/19 15:15 09/09/19 15:15 Lab Results 09/09/19 09/09/19 09/09/19 Range/Units 15:15 15:15 15:15 WBC 10.7 H (3.8-10.6) k/uL RBC 5.56 (4.30-5.90) m/uL Hgb 17.0 (13.0-17.5) gm/dL Hct 50.9 (39.0-53.0) % MCV 91.5 (80.0-100.0) fL MCH 30.6 (25.0-35.0) pg MCHC 33.4 (31.0-37.0) g/dL RDW 12.6 (11.5-15.5) % Plt Count 257 (150-450) k/uL Neutrophils % 65 % Lymphocytes % 25 % Monocytes % 7 % Eosinophils % 2 % Basophils % 1 % Neutrophils # 6.9 (1.3-7.7) k/uL Lymphocytes # 2.6 (1.0-4.8) k/uL Monocytes # 0.7 (0-1.0) k/uL Eosinophils # 0.2 (0-0.7) k/uL Basophils # 0.1 (0-0.2) k/uL PT (9.0-12.0) sec INR (<1.2) APTT (22.0-30.0) sec D-Dimer (<0.60) mg/L FEU Sodium 136 L (137-145) mmol/L Potassium 4.5 (3.5-5.1) mmol/L Chloride 103 (98-107) mmol/L Carbon Dioxide 22 (22-30) mmol/L Anion Gap 11 mmol/L BUN 16 (9-20) mg/dL Creatinine 0.71 (0.66-1.25) mg/dL Est GFR (CKD-EPI)AfAm >90 (>60 ml/min/1.73 sqM) Est GFR (CKD-EPI)NonAf >90 (>60 ml/min/1.73 sqM) Glucose 231 H (74-99) mg/dL POC Glucose (mg/dL) (75-99) mg/dL POC Glu Pie Filling Mixer ID Calcium 10.0 (8.4-10.2) mg/dL Magnesium 2.0 (1.6-2.3) mg/dL Total Bilirubin 0.8 (0.2-1.3) mg/dL AST 44 (17-59) U/L ALT 33 (4-49) U/L Alkaline Phosphatase 103 (38-126) U/L Troponin I (0.000-0.034) ng/mL NT-Pro-B Natriuret Pep 35 pg/mL Total Protein 7.4 (6.3-8.2) g/dL Albumin 4.5 (3.5-5.0) g/dL 09/09/19 09/09/19 09/09/19 Range/Units 15:15 15:15 15:15 WBC (3.8-10.6) k/uL RBC (4.30-5.90) m/uL Hgb (13.0-17.5) gm/dL Hct (39.0-53.0) % MCV (80.0-100.0) fL MCH (25.0-35.0) pg MCHC (31.0-37.0) g/dL RDW (11.5-15.5) % Plt Count (150-450) k/uL Neutrophils % % Lymphocytes % % Monocytes % % Eosinophils % % Basophils % % Neutrophils # (1.3-7.7) k/uL Lymphocytes # (1.0-4.8) k/uL Monocytes # (0-1.0) k/uL Eosinophils # (0-0.7) k/uL Basophils # (0-0.2) k/uL PT 10.8 (9.0-12.0) sec INR 1.1 (<1.2) APTT 22.1 (22.0-30.0) sec D-Dimer 0.56 (<0.60) mg/L FEU Sodium (137-145) mmol/L Potassium (3.5-5.1) mmol/L Chloride (98-107) mmol/L Carbon Dioxide (22-30) mmol/L Anion Gap mmol/L BUN (9-20) mg/dL Creatinine (0.66-1.25) mg/dL Est GFR (CKD-EPI)AfAm (>60 ml/min/1.73 sqM) Est GFR (CKD-EPI)NonAf (>60 ml/min/1.73 sqM) Glucose (74-99) mg/dL POC Glucose (mg/dL) (75-99) mg/dL POC Glu Pie Filling Mixer ID Calcium (8.4-10.2) mg/dL Magnesium (1.6-2.3) mg/dL Total Bilirubin (0.2-1.3) mg/dL AST (17-59) U/L ALT (4-49) U/L Alkaline Phosphatase (38-126) U/L Troponin I <0.012 (0.000-0.034) ng/mL NT-Pro-B Natriuret Pep pg/mL Total Protein (6.3-8.2) g/dL Albumin (3.5-5.0) g/dL 09/09/19 Range/Units 16:06 WBC (3.8-10.6) k/uL RBC (4.30-5.90) m/uL Hgb (13.0-17.5) gm/dL Hct (39.0-53.0) % MCV (80.0-100.0) fL MCH (25.0-35.0) pg MCHC (31.0-37.0) g/dL RDW (11.5-15.5) % Plt Count (150-450) k/uL Neutrophils % % Lymphocytes % % Monocytes % % Eosinophils % % Basophils % % Neutrophils # (1.3-7.7) k/uL Lymphocytes # (1.0-4.8) k/uL Monocytes # (0-1.0) k/uL Eosinophils # (0-0.7) k/uL Basophils # (0-0.2) k/uL PT (9.0-12.0) sec INR (<1.2) APTT (22.0-30.0) sec D-Dimer (<0.60) mg/L FEU Sodium (137-145) mmol/L Potassium (3.5-5.1) mmol/L Chloride (98-107) mmol/L Carbon Dioxide (22-30) mmol/L Anion Gap mmol/L BUN (9-20) mg/dL Creatinine (0.66-1.25) mg/dL Est GFR (CKD-EPI)AfAm (>60 ml/min/1.73 sqM) Est GFR (CKD-EPI)NonAf (>60 ml/min/1.73 sqM) Glucose (74-99) mg/dL POC Glucose (mg/dL) 278 H (75-99) mg/dL POC Glu Pie Filling Mixer ID Margo Carrillo Calcium (8.4-10.2) mg/dL Magnesium (1.6-2.3) mg/dL Total Bilirubin (0.2-1.3) mg/dL AST (17-59) U/L ALT (4-49) U/L Alkaline Phosphatase (38-126) U/L Troponin I (0.000-0.034) ng/mL NT-Pro-B Natriuret Pep pg/mL Total Protein (6.3-8.2) g/dL Albumin (3.5-5.0) g/dL Disposition Clinical Impression: Unstable angina pectoris, Chest pain, Coronary artery disease Disposition: ADMITTED IP TO THIS HOSP Condition: Stable Is patient prescribed a controlled substance at d/c from ED?: No Referrals: [facility],Clinic [Primary Care Provider] - 1-2 days Decision to Admit Reason: Admit from EC Decision Date: 09/09/19 Decision Time: 17:04
[2019-09-09 15:42] LABS: ALT 33 U/L (4-49); AST 44 U/L (17-59); African American GFR (CKD) >90 (>60 ml/min/1.73 sqM); Albumin 4.5 g/dL (3.5-5.0); Alkaline Phosphatase 103 U/L (38-126); Anion Gap 11 mmol/L; Blood Urea Nitrogen 16 mg/dL (9-20); Carbon Dioxide 22 mmol/L (22-30); Chloride 103 mmol/L (98-107); Glucose 231 mg/dL (74-99); Non-African American GFR(CKD) >90 (>60 ml/min/1.73 sqM); Potassium 4.5 mmol/L (3.5-5.1); Sodium 136 mmol/L (137-145); Total Bilirubin 0.8 mg/dL (0.2-1.3); Total Protein 7.4 g/dL (6.3-8.2)
[2019-09-09 15:47] LABS: Basophils # (A) 0.1 k/uL (0-0.2); Basophils % (A) 1 %; Eosinophils # (A) 0.2 k/uL (0-0.7); Eosinophils % (A) 2 %; HCT 50.9 % (39.0-53.0); Lymphocytes # (A) 2.6 k/uL (1.0-4.8); Lymphocytes % (A) 25 %; MCH 30.6 pg (25.0-35.0); MCHC 33.4 g/dL (31.0-37.0); MCV 91.5 fL (80.0-100.0); Mean Platelet Volume 7.1; Monocytes # (A) 0.7 k/uL (0-1.0); Monocytes % (A) 7 %; Neutrophils # (A) 6.9 k/uL (1.3-7.7); Neutrophils % (A) 65 %; Platelet Count 257 k/uL (150-450); RBC 5.56 m/uL (4.30-5.90); RDW 12.6 % (11.5-15.5); WBC 10.7 k/uL (3.8-10.6)
--- NOTE | 2019-09-09 15:51 | XR ---
EXAMINATION TYPE: XR chest 2V DATE OF EXAM: 09/09/2019 COMPARISON: 06/27/2017 HISTORY: 59-year-old male with chest pain TECHNIQUE: PA and lateral views FINDINGS: ACDF hardware. Median sternotomy wires with postoperative clips in the mediastinum. Heart normal size . Aorta and pulmonary vasculature within normal limits. Mild interstitial prominence without consolid ation or pleural effusion. IMPRESSION: Mild interstitial prominence may reflect bronchitis or asthma. No focal infiltrate.
[2019-09-09] MEDS ORDERED: ALBUTEROL NEBULIZED 2.5 MG/3 ML INHALATION STA (15:55)
[2019-09-09] MEDS ORDERED: DEXAMETHASONE SOD PHOSPHATE 10 MG/ML 1 ML VIAL IV STA (15:55)
[2019-09-09] MEDS ORDERED: INSULIN REGULAR 100 UNIT/ML VIAL IV ONE (15:55)
[2019-09-09] MEDS ORDERED: IPRATROPIUM-ALBUTEROL 3 ML NEB INHALATION STA (15:55)
[2019-09-09] MEDS ORDERED: ASPIRIN 325 MG TAB PO STA (15:56)
[2019-09-09 16:07] LABS: Glucose,Whole Blood 278 mg/dL (75-99)
[2019-09-09 16:09] LABS: INR 1.1 (<1.2); Partial Thromboplastin Time 22.1 sec (22.0-30.0); Prothrombin Time 10.8 sec (9.0-12.0)
[2019-09-09] MEDS ORDERED: NALOXONE 0.4 MG/ML 1 ML VIAL IV PRN (16:58)
[2019-09-09] MEDS ORDERED: ONDANSETRON 4 MG/2 ML VIAL IVP PRN (16:58)
[2019-09-09] MEDS ORDERED: ACETAMINOPHEN TAB 325 MG TAB PO PRN (16:58)
[2019-09-09] MEDS ORDERED: IPRATROPIUM-ALBUTEROL 3 ML NEB INHALATION PRN (17:00)
[2019-09-09] MEDS ORDERED: HEPARIN SODIUM,PORCINE 5,000 UNIT/ML 1 ML VIAL IV PRN (17:02)
[2019-09-09] MEDS ORDERED: HEPARIN SODIUM,PORCINE 5,000 UNIT/ML 1 ML VIAL IV ONE (17:02)
[2019-09-09] MEDS: SODIUM CHLORIDE 0.9% 1,000 ML IV SCH (17:10)
[2019-09-09] MEDS ORDERED: HEPARIN SOD,PORK IN 0.45% NACL 25,000 UNIT in 0.45% NACL 1 250ML.BAG IV SCH (17:15)
[2019-09-09 18:43] LABS: Glucose,Whole Blood 223 mg/dL (75-99)
[2019-09-09] MEDS: MORPHINE SULFATE 4 MG/ML SYRINGE IV PRN ×2 (18:50→23:29)
[2019-09-09 20:15] LABS: Glucose,Whole Blood 305 mg/dL (75-99)
[2019-09-09] MEDS: INSULIN ASPART (NovoLOG) 100 UNIT/ML VIAL SQ SCH (20:34)
[2019-09-09] MEDS: INSULIN DETEMIR (LEVEMIR) 100 UNIT/ML SYR SQ SCH (20:35)
[2019-09-10] MEDS: MORPHINE SULFATE 4 MG/ML SYRINGE IV PRN ×3 (03:56→12:42)
[2019-09-10 04:07] LABS: Glucose,Whole Blood 235 mg/dL (75-99)
[2019-09-10 06:37] LABS: Glucose,Whole Blood 211 mg/dL (75-99)
[2019-09-10 07:54] LABS: Basophils % (A) 0 %; Eosinophils % (A) 0 %; HCT 47.1 % (39.0-53.0); Lymphocytes # (A) 1.3 k/uL (1.0-4.8); Lymphocytes % (A) 8 %; MCH 31.1 pg (25.0-35.0); MCHC 33.9 g/dL (31.0-37.0); MCV 91.6 fL (80.0-100.0); Mean Platelet Volume 7.6; Monocytes # (A) 0.6 k/uL (0-1.0); Monocytes % (A) 4 %; Neutrophils # (A) 13.7 k/uL (1.3-7.7); Neutrophils % (A) 87 %; Platelet Count 269 k/uL (150-450); RBC 5.14 m/uL (4.30-5.90); RDW 12.7 % (11.5-15.5); WBC 15.8 k/uL (3.8-10.6)
[2019-09-10 08:32] LABS: Cholesterol 167 mg/dL (<200); HDL Cholesterol 45 mg/dL (40-60); LDL Cholesterol,Calculated 109 mg/dL (0-99); Triglycerides 64 mg/dL (<150)
[2019-09-10] MEDS ORDERED: KETOROLAC 30 MG/ML 1 ML VIAL IVP STA (09:49)
[2019-09-10] MEDS ORDERED: AMINOPHYLLINE 500 MG/20 ML VIAL IV PRN (09:49)
[2019-09-10] MEDS ORDERED: CAFFEINE CITRATE 60 MG/3 ML VIAL IV PRN (09:49)
[2019-09-10] MEDS: ATORVASTATIN 80 MG TAB PO SCH (09:59)
[2019-09-10] MEDS: ASPIRIN 81 MG PO SCH (09:59)
[2019-09-10] MEDS ORDERED: DIPYRIDAMOLE 70 MG in SODIUM CHLORIDE 0.9% 50 ML IV ONE (10:00)
--- NOTE | 2019-09-10 10:53 | P.CRDCN ---
History of Present Illness History of present illness: HISTORY OF PRESENTING ILLNESS This is a pleasant 59-year-old male past medical history significant for coronary artery disease status post bypass grafting, hypertension, dyslipidemia, diabetes mellitus, bariatric surgery and obesity. He follows in the office with Dr. Us. We have been asked to see in consultation for chest pain. He is seen and examined resting comfortably sitting up in bed in no acute distress. He states for the previous 2-3 weeks he has been experiencing a discomfort in the left precordial region described as a heavy pressure type sensation with radiation to the neck and down the left arm. He states his left arm has been numb for the previous few weeks. His symptoms have been constant. Over the previous 2 days they have seemed to become more intensified however not related to exertion or activity. His pain is not worse on palpation. He does have cervical radiculopathy and has undergone extensive back reconstructive surgery. He denies associated shortness of breath, dizziness, palpitations, nausea, vomiting or diaphoresis. He has been coughing but no significant sputum. His pain is not exacerbated by cough. No fever or chills at home. DIAGNOSTICS EKG reveals sinus mechanism with no acute ST or T-wave abnormalities. Telemetry tracings are unremarkable for an acute arrhythmia. Chest xray mild interstitial prominence with no focal infiltrate. Laboratory reviewed, WBC 15.8, hemoglobin 16, platelets 269, d-dimer 0.56, sodium 136, potassium 4.5, creatinine 0.71, magnesium 2.0, cardiac enzymes negative 3, LDL 109. Current cardiac medications include aspirin 162 mg daily, atorvastatin 80 mg daily, carvedilol 3.125 mg twice a day, Plavix 75 mg daily and Zestoretic 20/25 mg daily. Most recent echocardiogram obtained 2017 revealed preserved LV systolic function with ejection fraction 55-60%. Most recent cardiac catheterization performed in 2017 revealed severe two-vessel coronary artery disease with a occlusion of the LAD and RCA, patent CARDOSO to LAD patent SVG to RCA and patent stent in the diagonal branch. REVIEW OF SYSTEMS At the time of my exam: CONSTITUTIONAL: Denies fever or chills. CARDIOVASCULAR: Complains of chest pain. Denies shortness of breath, orthopnea, PND or palpitations. RESPIRATORY: Complains of cough. GASTROINTESTINAL: Denies abdominal pain, diarrhea, constipation, nausea or vomiting. MUSCULOSKELETAL: Denies myalgias. NEUROLOGIC: Denies numbness, tingling or weakness. ENDOCRINE: Denies fatigue, weight change, polydipsia or polyurina. GENITOURINARY: Denies burning, hematuria or urgency with micturation. HEMATOLOGIC: Denies history of anemia or bleeding. PHYSICAL EXAMINATION Blood pressure 123/74 heart rate 88 afebrile and maintaining oxygen saturation on male. CONSTITUTIONAL: No apparent distress. Obese. HEENT: Head is normocephalic. Pupils are equal, round. Sclerae anicteric. Mucous membranes of the mouth are moist. No JVD. No carotid bruit. CHEST EXAMINATION: Lungs are clear to auscultation. No chest wall tenderness is noted on palpation or with deep breathing. HEART EXAMINATION: Regular rate and rhythm. S1, S2 heard. No murmurs, gallops or rub. ABDOMEN: Soft, nontender. Positive bowel sounds. EXTREMITIES: 2+ peripheral pulses, no lower extremity edema and no calf tenderness. NEUROLOGIC EXAMINATION: Patient is awake, alert and oriented x3. ASSESSMENT Chest pain, atypical for angina. An acute coronary event has been ruled out. History of coronary artery disease status post bypass grafting Hypertension Dyslipidemia Diabetes mellitus PLAN An acute coronary event has been ruled out. Pain is atypical for angina given its constant nature with no EKG changes or enzyme elevation. Possibly related to musculoskeletal nature given his history of cervical radiculopathy. We will give one dose of IV Toradol to assess relief. Obtain 2-D echocardiogram and Doppler study to assess cardiac structure and function. Perform Persantine stress test to assess for reversible cardiac ischemia given his significant history of underlying coronary artery disease. If stress test is abnormal we will consider coronary angiography. Add zetia to his daily regimen for optimal LDL of less than 70. Decrease aspirin to 81 mg daily. If stress test is normal he is stable for discharge from a cardiac perspective, follow-up in the office with Dr. Us in 2 weeks. Thank you kindly for this consultation. Nurse Practitioner note has been reviewed, I agree with a documented findings and plan of care. Patient was seen and examined. Past Medical History Past Medical History: Asthma, Coronary Artery Disease (CAD), Chest Pain / Angin a, COPD, Diabetes Mellitus, Hyperlipidemia, Hypertension, Neurologic Disorder, Osteoarthritis (OA), Pneumonia, Respiratory Disorder, Sleep Apnea/CPAP/BIPAP Additional Past Medical History / Comment(s): RECURRENT EPISTAXIS, neuropathy, broncitis, left foot cold and edematous. H1N1 History of Any Multi-Drug Resistant Organisms: None Reported Past Surgical History: Bariatric Surgery, Coronary Bypass/CABG, Heart Catheterization With Stent Additional Past Surgical History / Comment(s): CABG 2009- vessel, Cervical surgery C4-5 and C5-6, Joe Knee Arthroscopy, 2015 STENTS X3, Sleeve Gastrectomy 2014, PTCA W/ STENT X1 10/23/16. Stents X2 11/05/16 and X1 05-22-17 ,PRIOR SX FOR RECURRENT EPISTAXIS Past Anesthesia/Blood Transfusion Reactions: No Reported Reaction Date of Last Stent Placement:: 05/22/17 Past Psychological History: No Psychological Hx Reported Additional Psychological History / Comment(s): Pt resides with his spouse. He is independent. He uses no assistive devices. He drives. 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 Smoking Status: Current every day smoker Past Alcohol Use History: None Reported Additional Past Alcohol Use History / Comment(s): Smoked an occassional cigar of f and on since age 23(1984) Past Drug Use History: None Reported Additional Drug Use History / Comment(s): Past use of cocaine, acid but denies any IV drug use. Quit over 30 years ago. Past history of alcohol use. - Past Family History Mother Family Medical History: Cancer Additional Family Medical History / Comment(s): bone cancer-mother at age 72yrs. Father Family Medical History: Cancer Additional Family Medical History / Comment(s): brain cancer-father at age 52yrs. Sister(s) Additional Family Medical History / Comment(s): brain aneurysm Medications and Allergies Home Medications Medication Instructions Recorded Confirmed Type Carvedilol [Coreg] 3.125 mg PO BID 06/05/15 09/09/19 History Insulin Glargine [Lantus] 80 unit SQ BID 07/26/15 09/09/19 History Atorvastatin [Lipitor] 80 mg PO HS 10/22/16 09/09/19 History Aspirin EC [Ecotrin Low Dose] 162 mg PO DAILY 09/09/19 09/09/19 History Clopidogrel [Plavix] 75 mg PO DAILY 09/09/19 09/09/19 History Lisinopril-Hctz 20-25 mg 1 tab PO DAILY 09/09/19 09/09/19 History [Zestoretic -] Loratadine [Claritin] 10 mg PO DAILY 09/09/19 09/09/19 History Sildenafil Citrate 100 mg PO DAILY PRN 09/09/19 09/09/19 History Allergies Allergy/AdvReac Type Severity Reaction Status Date / Time naproxen sodium [From Aleve] Allergy Rash/Hives Verified 09/09/19 15:16 nitroglycerin AdvReac Nausea & Verified 09/09/19 17:25 [From Nitrostat] Vomiting & Diarrhea Physical Exam Vitals: Vital Signs Temp Pulse Pulse Pulse Pulse Resp BP 09/10/19 07:35 88 09/10/19 07:25 88 09/10/19 07:00 98.1 F 90 18 09/10/19 04:00 98.1 F 89 16 09/09/19 23:23 98.2 F 97 17 09/09/19 18:29 98.2 F 86 16 09/09/19 17:03 90 18 115/62 09/09/19 16:16 98 09/09/19 16:04 94 09/09/19 15:53 93 18 113/69 09/09/19 15:17 96 09/09/19 15:12 98.4 F 97 18 153/90 BP BP Pulse Ox 09/10/19 07:35 09/10/19 07:25 09/10/19 07:00 123/74 96 09/10/19 04:00 146/93 98 09/09/19 23:23 135/72 97 09/09/19 18:29 139/80 96 09/09/19 17:03 95 09/09/19 16:16 09/09/19 16:04 09/09/19 15:53 95 09/09/19 15:17 09/09/19 15:12 97 Intake and Output 09/09/19 09/10/19 09/10/19 22:59 06:59 14:59 Intake Total 69.936 Balance 69.936 Intake: Intake, IV Titration 69.936 Amount Heparin Sod,Pork in 0.45% 69.936 NaCl 25,000 unit In 0.45 % NaCl 1 250ml.bag @ 8.1 UNITS/KG/HR 9.92 mls/hr IV .Q24H [facility] Rx#: [id number] Other: Voiding Method Toilet Toilet Toilet # Voids 1 Weight 122.47 kg 123.5 kg Results 09/10/19 07:07 09/09/19 15:15 Cardiac Enzymes 09/09/19 09/09/19 09/09/19 Range/Units 15:15 15:15 22:43 AST 44 (17-59) U/L Troponin I <0.012 <0.012 (0.000-0.034) ng/mL 09/10/19 Range/Units 03:27 AST (17-59) U/L Troponin I <0.012 (0.000-0.034) ng/mL Coagulation 09/09/19 09/09/19 09/10/19 Range/Units 15:15 22:43 07:03 PT 10.8 (9.0-12.0) sec APTT 22.1 28.4 39.1 H (22.0-30.0) sec Lipids 09/10/19 Range/Units 07:03 Triglycerides 64 (<150) mg/dL Cholesterol 167 (<200) mg/dL HDL Cholesterol 45 (40-60) mg/dL CBC 09/09/19 09/10/19 Range/Units 15:15 07:07 WBC 10.7 H 15.8 H (3.8-10.6) k/uL RBC 5.56 5.14 (4.30-5.90) m/uL Hgb 17.0 16.0 (13.0-17.5) gm/dL Hct 50.9 47.1 (39.0-53.0) % Plt Count 257 269 (150-450) k/uL Comprehensive Metabolic Panel 09/09/19 Range/Units 15:15 Sodium 136 L (137-145) mmol/L Potassium 4.5 (3.5-5.1) mmol/L Chloride 103 (98-107) mmol/L Carbon Dioxide 22 (22-30) mmol/L BUN 16 (9-20) mg/dL Creatinine 0.71 (0.66-1.25) mg/dL Glucose 231 H (74-99) mg/dL Calcium 10.0 (8.4-10.2) mg/dL AST 44 (17-59) U/L ALT 33 (4-49) U/L Alkaline Phosphatase 103 (38-126) U/L Total Protein 7.4 (6.3-8.2) g/dL Albumin 4.5 (3.5-5.0) g/dL Current Medications Generic Name Dose Route Start Last Admin Trade Name Freq PRN Reason Stop Dose Admin Acetaminophen 650 mg 09/09/19 16:58 Tylenol Tab PO Q6HR PRN Mild Pain or Fever > 100.5 Albuterol/Ipratropium 3 ml 09/09/19 17:00 09/10/19 07:24 Duoneb 0.5 Mg-3 Mg/3 Ml Soln INHALATION 3 ml RT-QID PRN Administration Shortness Of Breath Or Wheezing Aminophylline 100 mg 09/10/19 09:49 Aminophylline IV ONCE PRN Patient Response Aspirin 81 mg 09/10/19 09:00 Aspirin PO QAM [facility] Atorvastatin Calcium 80 mg 09/10/19 09:00 Lipitor PO QAM [facility] Caffeine Citrate 60 mg 09/10/19 09:49 Cafcit Inj IV ONCE PRN Patient Response Carvedilol 3.125 mg 09/10/19 07:30 Coreg PO AC-BRKFST [facility] Heparin Sodium (Porcine) 0 unit 09/09/19 17:02 09/10/19 00:29 Heparin IV 4,000 unit PER PROTOCOL PRN Administration Low PTT Protocol Sodium Chloride 1,000 mls @ 20 mls/hr 09/09/19 17:00 09/09/19 17:10 Saline 0.9% IV 20 mls/hr .Q24H [facility] Administration Dipyridamole 70 mg/ Sodium 50 mls @ 750 mls/hr 09/10/19 10:00 Chloride IV 09/10/19 10:03 ONCE ONE Insulin Aspart 0 unit 09/09/19 21:00 09/09/19 20:34 Novolog SQ 8 unit ACHS [facility] Administration Protocol Insulin Detemir 80 unit 09/09/19 21:00 09/09/19 20:35 Levemir SQ 80 unit BID@0700,2100 [facility] Administration Morphine Sulfate 4 mg 09/09/19 16:58 09/10/19 08:07 Morphine Sulfate (Inj) IV 4 mg Q4HR PRN Administration Severe Pain Naloxone HCl 0.2 mg 09/09/19 16:58 Narcan IV Q2M PRN Opioid Reversal Ondansetron HCl 4 mg 09/09/19 16:58 Zofran IVP Q8HR PRN Nausea And Vomiting Intake and Output 09/09/19 09/10/19 09/10/19 22:59 06:59 14:59 Intake Total 69.936 Balance 69.936 Intake: Intake, IV Titration 69.936 Amount Heparin Sod,Pork in 0.45% 69.936 NaCl 25,000 unit In 0.45 % NaCl 1 250ml.bag @ 8.1 UNITS/KG/HR 9.92 mls/hr IV .Q24H [facility] Rx#: [id number] Other: Voiding Method Toilet Toilet Toilet # Voids 1 Weight 122.47 kg 123.5 kg 09/10/19 07:07 09/09/19 15:15
[2019-09-10] MEDS ORDERED: AMINOPHYLLINE 500 MG/20 ML VIAL IV ONE (11:25)
[2019-09-10 12:25] LABS: Glucose,Whole Blood 248 mg/dL (75-99)
[2019-09-10] MEDS: INSULIN ASPART (NovoLOG) 100 UNIT/ML VIAL SQ SCH ×4 (12:31→21:16)
[2019-09-10] MEDS: INSULIN DETEMIR (LEVEMIR) 100 UNIT/ML SYR SQ SCH ×2 (12:41→21:16)
[2019-09-10] MEDS: EZETIMIBE 10 MG TAB PO SCH (12:42)
[2019-09-10] MEDS: CLOPIDOGREL 75 MG TAB PO SCH (12:42)
[2019-09-10] MEDS: CARVEDILOL 3.125 MG TAB PO SCH (12:42)
[2019-09-10] MEDS: LISINOPRIL-HCTZ 20-25 MG 1 EACH TAB PO SCH (12:43)
--- NOTE | 2019-09-10 12:55 | ECHOF ---
Referral Reason:cp MEASUREMENTS -------- HEIGHT: 182.9 cm WEIGHT: 123.4 kg BP: 123/74 RVIDd: 3.5 cm (< 3.3) IVSd: 1.5 cm (0.6 - 1.1) LVIDd: 4.7 cm (3.9 - 5.3) LVPWd: 1.5 cm (0.6 - 1.1) IVSs: 1.9 cm LVIDs: 3.5 cm LVPWs: 2.1 cm LAESV Index (A-L): 23.17 ml/m Ao Diam: 3.7 cm (2.0 - 3.7) AV Cusp: 2.5 cm (1.5 - 2.6) MV EXCURSION: 21.757 mm (> 18.000) MV EF SLOPE: 62 mm/s (70 - 150) EPSS: 0.6 cm MV E Ramirez: 0.59 m/s MV DecT: 250 ms MV A Ramirez: 0.84 m/s MV E/A Ratio: 0.71 RAP: 5.00 mmHg RVSP: 31.74 mmHg TAPSE: 14.79 mm FINDINGS -------- Sinus rhythm. This was a technically difficult study with suboptimal apical views. The left ventricular size is normal. There is moderate concentric left ventricular hypertrophy. O verall left ventricular systolic function is normal with, an EF between 60 - 65 %. The right ventricle is mildly enlarged. Normal LA size by volume 22+/-6 ml/m2. The right atrium is normal in size. 3 ml of Lumason was utilized for enhancement of images. Interatrial and interventricular septum intact. The aortic valve is trileaflet and appears structurally normal. The mitral valve is normal. Mild tricuspid regurgitation present. Right ventricular systolic pressure is normal at < 35 mmHg. Trace/mild (physiologic) pulmonic regurgitation. The aortic root size is normal. IVC Not well visulized. There is no pericardial effusion. CONCLUSIONS -------- 1. Sinus rhythm. 2. This was a technically difficult study with suboptimal apical views. 3. The left ventricular size is normal. 4. There is moderate concentric left ventricular hypertrophy. 5. Overall left ventricular systolic function is normal with, an EF between 60 - 65 %. 6. The right ventricle is mildly enlarged. 7. Normal LA size by volume 22+/-6 ml/m2. 8. The right atrium is normal in size. 9. 3 ml of Lumason was utilized for enhancement of images. 10. Interatrial and interventricular septum intact. 11. The aortic valve is trileaflet and appears structurally normal. 12. The mitral valve is normal. 13. Mild tricuspid regurgitation present. 14. Right ventricular systolic pressure is normal at < 35 mmHg. 15. Trace/mild (physiologic) pulmonic regurgitation. 16. The aortic root size is normal. 17. IVC Not well visulized. 18. There is no pericardial effusion. AUTOMATIC LOG CUT OFF SAWYER: Courtney Guy RDCS
--- NOTE | 2019-09-10 13:22 | EST ---
EXERCISE STRESS DATE OF SERVICE: 09/10/2019 AGE: 59 SEX: Male HT: 72" WT: 272 pounds PROTOCOL: Persantine Cardiolite STAGE: DURATION OF EXERCISE: HEART RATE REST: 81 BLOOD PRESSURE REST: 128/59 MAXIMUM HEART RATE ACHIEVED: 98 MAXIMUM BLOOD PRESSURE: 130/62 85% MPHR: 135 100% MPHR: 159 METS: INDICATIONS: Chest pain. CLINICAL INFORMATION: A Persantine nuclear study was performed. Peak heart rate of 98 was achieved. Maximum blood pressure of 130/62 mmHg was noted. Resting EKG shows normal sinus rhythm with normal MS interval and QRS duration and normal ST-T waves. No ST-segment depression suggestive of ischemia is noted. The results of the nuclear study will follow. MMODL / IJN: [id number] /
[2019-09-10 15:08] LABS: Hemoglobin A1C 9.4 % (4.0-6.0)
--- NOTE | 2019-09-10 15:24 | NM ---
EXAMINATION TYPE: NM stress persantine cardiolit DATE OF EXAM: 09/10/2019 COMPARISON: NONE HISTORY: Chest pain TECHNIQUE: After the intravenous administration of 10.7 mCi Tc 99m Sestamibi - Cardiolite resting SP ECT images acquired 50 minutes post injection. The patient received 70 mg Persantine, 26.2 mCi Tc 99m Sestamibi - Stress images obtained 35 minutes post injection FINDINGS: There is diminished radiotracer accumulation along the inferior wall on stress images. This has a mor e normal radiotracer distribution on resting images. Some stable fixed thinning of the cardiac apex i s present. No fixed defect to suggest prior infarct is identified. Gated wall motion is normal. Ejection fraction of 58% is normal. IMPRESSION: 1. Stress-induced changes along the inferior wall. A Pepin level critical message alert has been initiated for Myranda Clay MD via the [email or web address] Critical Results System on 09/10/2019 3:22 PM. This message alert has been sent to Myranda Clay MD via the preferences provided by the clinician for the receipt of Radiology Critical Findi ngs. Message ID [id number].
--- NOTE | 2019-09-10 15:37 | P.HPIM ---
History of Present Illness H&P Date: 09/10/19 Chief Complaint: chest pain 59-year-old male history of CAD presenting with several weeks of left-sided chest pressure and heaviness. He states that the symptoms have worsened over the past 2 days. He states symptoms are both at rest and with exertion, not specifically worsened by exertion. He reports some cough which is productive of sputum. No fever but he has had chills. Pain radiates to his left arm and left neck. He had bypass surgery approximately 10 years ago and has had multiple stents placed. He states he is on blood thinners but is uncertain what medica tions he is currently taking. No significant abdominal pain. No vomiting. He Is a current smoker. EKG reveals sinus mechanism with no acute ST or T-wave abnormalities. Chest xray mild interstitial prominence with no focal infiltrate. Laboratory reviewed, WBC 15.8, hemoglobin 16, platelets 269, d-dimer 0.56, sodium 136, potassium 4.5, creatinine 0.71, magnesium 2.0, cardiac enzymes negative 3, LDL 109. Most recent echocardiogram obtained 2017 revealed preserved LV systolic function with ejection fraction 55-60%. Most recent cardiac catheterization performed in 2017 revealed severe two-vessel coronary artery disease with a occlusion of the LAD and RCA, patent CARDOSO to LAD patent SVG to RCA and patent stent in the diagonal branch. Review of Systems REVIEW OF SYSTEMS: CONSTITUTIONAL: No fever, no malaise, no fatigue. HEENT: No recent visual problems or hearing problems. Denied any sore throat. CARDIOVASCULAR: No chest pain, orthopnea, PND, no palpitations, no syncope. PULMONARY: No shortness of breath, no cough, no hemoptysis. GASTROINTESTINAL: No diarrhea, no nausea, no vomiting, no abdominal pain. NEUROLOGICAL: No headaches, no weakness, no numbness. HEMATOLOGICAL: Denies any bleeding or petechiae. GENITOURINARY: Denies any burning micturition, frequency, or urgency. MUSCULOSKELETAL/RHEUMATOLOGICAL: Denies any joint pain, swelling, or any muscle pain. ENDOCRINE: Denies any polyuria or polydipsia. The rest of the 14-point review of systems is negative. Past Medical History Past Medical History: Asthma, Coronary Artery Disease (CAD), Chest Pain / Angina, COPD, Diabetes Mellitus, Hyperlipidemia, Hypertension, Neurologic Disorder, Osteoarthritis (OA), Pneumonia, Respiratory Disorder, Sleep Apnea/CPAP/BIPAP Additional Past Medical History / Comment(s): RECURRENT EPISTAXIS, neuropathy, broncitis, left foot cold and edematous. H1N1 History of Any Multi-Drug Resistant Organisms: None Reported Past Surgical History: Bariatric Surgery, Coronary Bypass/CABG, Heart Catheterization With Stent Additional Past Surgical History / Comment(s): CABG 2009- vessel, Cervical surgery C4-5 and C5-6, Joe Knee Arthroscopy, 2015 STENTS X3, Sleeve Gastrectomy 2014, PTCA W/ STENT X1 10/23/16. Stents X2 11/05/16 and X1 05-22-17 ,PRIOR SX FOR RECURRENT EPISTAXIS Past Anesthesia/Blood Transfusion Reactions: No Reported Reaction Date of Last Stent Placement:: 05/22/17 Past Psychological History: No Psychological Hx Reported Additional Psychological History / Comment(s): Pt resides with his spouse. He is independent. He uses no assistive devices. He drives. 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 Smoking Status: Current every day smoker Past Alcohol Use History: None Reported Additional Past Alcohol Use History / Comment(s): Smoked an occassional cigar off and on since age 23(1984) Past Drug Use History: None Reported Additional Drug Use History / Comment(s): Past use of cocaine, acid but denies any IV drug use. Quit over 30 years ago. Past history of alcohol use. - Past Family History Mother Family Medical History: Cancer Additional Family Medical History / Comment(s): bone cancer-mother at age 72yrs. Father Family Medical History: Cancer Additional Family Medical History / Comment(s): brain cancer-father at age 52yrs. Sister(s) Additional Family Medical History / Comment(s): brain aneurysm Medications and Allergies Home Medications Medication Instructions Recorded Confirmed Type Carvedilol [Coreg] 3.125 mg PO BID 06/05/15 09/09/19 History Insulin Glargine [Lantus] 80 unit SQ BID 07/26/15 09/09/19 History Atorvastatin [Lipitor] 80 mg PO HS 10/22/16 09/09/19 History Aspirin EC [Ecotrin Low Dose] 162 mg PO DAILY 09/09/19 09/09/19 History Clopidogrel [Plavix] 75 mg PO DAILY 09/09/19 09/09/19 History Lisinopril-Hctz 20-25 mg 1 tab PO DAILY 09/09/19 09/09/19 History [Zestoretic ] Loratadine [Claritin] 10 mg PO DAILY 09/09/19 09/09/19 History Sildenafil Citrate 100 mg PO DAILY PRN 09/09/19 09/09/19 History Ezetimibe [Zetia] 10 mg PO DAILY #30 tab 09/10/19 Rx Allergies Allergy/AdvReac Type Severity Reaction Status Date / Time naproxen sodium [From Aleve] Allergy Rash/Hives Verified 09/09/19 15:16 nitroglycerin AdvReac Nausea & Verified 09/09/19 17:25 [From Nitrostat] Vomiting & Diarrhea Physical Exam Vitals: Vital Signs Temp Pulse Pulse Pulse Pulse Resp BP 09/10/19 07:35 88 09/10/19 07:25 88 09/10/19 07:00 98.1 F 90 18 09/10/19 04:00 98.1 F 89 16 09/09/19 23:23 98.2 F 97 17 09/09/19 18:29 98.2 F 86 16 09/09/19 17:03 90 18 115/62 09/09/19 16:16 98 09/09/19 16:04 94 09/09/19 15:53 93 18 113/69 09/09/19 15:17 96 09/09/19 15:12 98.4 F 97 18 153/90 BP BP Pulse Ox 09/10/19 07:35 09/10/19 07:25 09/10/19 07:00 123/74 96 09/10/19 04:00 146/93 98 09/09/19 23:23 135/72 97 09/09/19 18:29 139/80 96 09/09/19 17:03 95 09/09/19 16:16 09/09/19 16:04 09/09/19 15:53 95 09/09/19 15:17 09/09/19 15:12 97 Intake and Output 09/09/19 09/10/19 09/10/19 22:59 06:59 14:59 Intake Total 69.936 Balance 69.936 Intake: Intake, IV Titration 69.936 Amount Heparin Sod,Pork in 0.45% 69.936 NaCl 25,000 unit In 0.45 % NaCl 1 250ml.bag @ 8.1 UNITS/KG/HR 9.92 mls/hr IV .Q24H [facility] Rx#: [id number] Other: Voiding Method Toilet Toilet Toilet # Voids 1 Weight 122.47 kg 123.5 kg 123.5 kg PHYSICAL EXAMINATION: GENERAL: The patient is alert and oriented x3, not in any acute distress. Well developed, well nourished. HEENT: Pupils are round and equally reacting to light. EOMI. No scleral icterus. No conjunctival pallor. Normocephalic, atraumatic. No pharyngeal erythema. No thyromegaly. CARDIOVASCULAR: S1 and S2 present. No murmurs, rubs, or gallops. PULMONARY: Chest is clear to auscultation, no wheezing or crackles. ABDOMEN: Soft, nontender, nondistended, normoactive bowel sounds. No palpable organomegaly. MUSCULOSKELETAL: No joint swelling or deformity. EXTREMITIES: No cyanosis, clubbing, or pedal edema. NEUROLOGICAL: Gross neurological examination did not reveal any focal deficits. SKIN: No rashes. Results CBC & Chem 7: 09/10/19 07:07 09/09/19 15:15 Labs: Abnormal Lab Results - Last 24 Hours (Table) 09/09/19 09/09/19 09/09/19 Range/Units 15:15 15:15 16:06 WBC 10.7 H (3.8-10.6) k/uL Neutrophils # (1.3-7.7) k/uL APTT (22.0-30.0) sec Sodium 136 L (137-145) mmol/L Glucose 231 H (74-99) mg/dL POC Glucose (mg/dL) 278 H (75-99) mg/dL LDL Cholesterol, Calc (0-99) mg/dL 09/09/19 09/09/19 09/10/19 Range/Units 18:42 20:14 04:05 WBC (3.8-10.6) k/uL Neutrophils # (1.3-7.7) k/uL APTT (22.0-30.0) sec Sodium (137-145) mmol/L Glucose (74-99) mg/dL POC Glucose (mg/dL) 223 H 305 H 235 H (75-99) mg/dL LDL Cholesterol, Calc (0-99) mg/dL 09/10/19 09/10/19 09/10/19 Range/Units 06:34 07:03 07:03 WBC (3.8-10.6) k/uL Neutrophils # (1.3-7.7) k/uL APTT 39.1 H (22.0-30.0) sec Sodium (137-145) mmol/L Glucose (74-99) mg/dL POC Glucose (mg/dL) 211 H (75-99) mg/dL LDL Cholesterol, Calc 109 H (0-99) mg/dL 09/10/19 09/10/19 Range/Units 07:07 12:25 WBC 15.8 H (3.8-10.6) k/uL Neutrophils # 13.7 H (1.3-7.7) k/uL APTT (22.0-30.0) sec Sodium (137-145) mmol/L Glucose (74-99) mg/dL POC Glucose (mg/dL) 248 H (75-99) mg/dL LDL Cholesterol, Calc (0-99) mg/dL Thrombosis Risk Factor Assmnt - Choose All That Apply Any of the Below Risk Factors Present?: Yes Each Factor Represents 1 point: Abnormal pulmonary function (COPD), Obesity (BMI >25) Other Risk Factors: Yes Each Risk Factor Represents 2 Points: Age 61-74 years Other congenital or acquired thrombophilia - If yes, enter type in comment: No Thrombosis Risk Factor Assessment Total Risk Factor Score: 4 Thrombosis Risk Factor Assessment Level: Moderate Risk Assessment and Plan Assessment: 1. Chest pain, atypical for angina. An acute coronary event has been ruled out. - Pain is atypical for angina given its constant nature with no EKG changes or enzyme elevation. Possibly related to musculoskeletal nature given his history of cervical radiculopathy. We will give one dose of IV Toradol to assess relief. Obtain 2-D echocardiogram and Doppler study to assess cardiac structure and function. Perform Persantine stress test to assess for reversible cardiac ischemia given his significant history of underlying coronary artery disease. If stress test is abnormal we will consider coronary angiography. Add zetia to his daily regimen for optimal LDL of less than 70. 2. History of coronary artery disease status post bypass grafting; patient's last cardiac catheterization wasn't 2/6 and 17 she revealed severe two-vessel CAD; patient currently takes aspirin, Plavix, statin and beta blockers 3. Hypertension; stable on Coreg 3.125 twice a day, Zestoretic 20/25 mg daily 4. Dyslipidemia; patient takes atorvastatin 80 mg daily; cardiology has seen patient and have added Zetia for optimal LDL of less than 70 5. Diabetes mellitus; monitor Accu-Cheks every before meals and at bedtime with insulin sliding scale DVT prophylaxis; SCDs CODE STATUS; full code
[2019-09-10 16:44] LABS: Glucose,Whole Blood 327 mg/dL (75-99)
[2019-09-10] MEDS: KETOROLAC 30 MG/ML 1 ML VIAL IVP PRN ×2 (16:58→21:48)
[2019-09-10 17:07] VITALS: RESP 18
[2019-09-10] MEDS: SODIUM CHLORIDE 0.9% 1,000 ML IV SCH (18:14)
[2019-09-10 21:13] LABS: Glucose,Whole Blood 231 mg/dL (75-99)
[2019-09-11] MEDS: KETOROLAC 30 MG/ML 1 ML VIAL IVP PRN ×3 (04:51→16:27)
[2019-09-11] MEDS: INSULIN DETEMIR (LEVEMIR) 100 UNIT/ML SYR SQ SCH ×2 (06:32→20:54)
[2019-09-11 06:42] LABS: Basophils # (A) 0.1 k/uL (0-0.2); Basophils % (A) 1 %; Eosinophils # (A) 0.1 k/uL (0-0.7); Eosinophils % (A) 1 %; HCT 45.4 % (39.0-53.0); HGB 15.3 gm/dL (13.0-17.5); Lymphocytes % (A) 24 %; MCH 31.1 pg (25.0-35.0); MCHC 33.6 g/dL (31.0-37.0); MCV 92.6 fL (80.0-100.0); Mean Platelet Volume 7.1; Monocytes # (A) 0.7 k/uL (0-1.0); Monocytes % (A) 6 %; Neutrophils # (A) 8.5 k/uL (1.3-7.7); Neutrophils % (A) 67 %; Platelet Count 239 k/uL (150-450); RDW 12.8 % (11.5-15.5); WBC 12.6 k/uL (3.8-10.6)
[2019-09-11 06:47] LABS: Glucose,Whole Blood 87 mg/dL (75-99)
[2019-09-11] MEDS: INSULIN ASPART (NovoLOG) 100 UNIT/ML VIAL SQ SCH ×4 (06:48→20:54)
[2019-09-11] MEDS: CARVEDILOL 3.125 MG TAB PO SCH (06:50)
[2019-09-11] MEDS ORDERED: NITROGLYCERIN SL TABS 0.4 MG TAB SUBLINGUAL PRN ×2 (09:17→11:40)
[2019-09-11] MEDS ORDERED: ALPRAZolam 0.25 MG TAB PO PRN (09:17)
[2019-09-11] MEDS ORDERED: ATORVASTATIN 80 MG TAB PO STA (09:17)
[2019-09-11] MEDS ORDERED: SODIUM CHLORIDE 0.9% 1,000 ML in EMPTY BAG 1 BAG IV ONE (09:17)
[2019-09-11] MEDS ORDERED: ALPRAZolam 0.5 MG TAB PO PRN (09:17)
[2019-09-11] MEDS ORDERED: ASPIRIN 325 MG TAB PO STA (09:17)
[2019-09-11] MEDS: CLOPIDOGREL 75 MG TAB PO SCH (09:28)
[2019-09-11] MEDS: ASPIRIN 81 MG PO SCH (09:28)
[2019-09-11] MEDS: ATORVASTATIN 80 MG TAB PO SCH (09:28)
[2019-09-11] MEDS: EZETIMIBE 10 MG TAB PO SCH (09:28)
[2019-09-11] MEDS: LISINOPRIL-HCTZ 20-25 MG 1 EACH TAB PO SCH (09:28)
[2019-09-11] MEDS ORDERED: SODIUM CHLORIDE 0.9% 500 ML 500 ML IV ONE (10:10)
[2019-09-11] MEDS ORDERED: LIDOCAINE 1% INJ 10MG/ML (20 ML MDV) ONE (10:10)
[2019-09-11] MEDS ORDERED: MIDAZOLAM 2 MG/2 ML VIAL IV ONE (10:45)
[2019-09-11] MEDS ORDERED: LIDOCAINE 1% INJ 10MG/ML (20 ML MDV) SQ ONE (10:46)
[2019-09-11 11:04] VITALS: BMI 36.2
[2019-09-11] MEDS ORDERED: BIVALIRUDIN BOLUS 250 MG/50 ML IV ONE (11:08)
[2019-09-11] MEDS ORDERED: BIVALIRUDIN 250 MG in SODIUM CHLORIDE 0.9% 50 ML IV ONE (11:10)
[2019-09-11] MEDS ORDERED: niCARdipine 25 MG/10 ML VIAL ONE (11:17)
[2019-09-11] MEDS ORDERED: CLOPIDOGREL 75 MG TAB ONE (11:25)
[2019-09-11] MEDS ORDERED: CLOPIDOGREL 75 MG TAB PO ONE (11:28)
[2019-09-11] MEDS ORDERED: IOPAMIDOL-370 125ML BTL INJ ONE (11:31)
[2019-09-11] MEDS ORDERED: RX INFO: IV CONTRAST WAS GIVEN 1 EACH MISC MISCELLANE PRN (11:40)
[2019-09-11] MEDS ORDERED: ATROPINE SULFATE 0.1 MG/ML 10ML SYRINGE IV PRN (11:40)
[2019-09-11] MEDS ORDERED: ZOLPIDEM 5 MG TAB PO PRN (11:40)
[2019-09-11] MEDS ORDERED: MAG HYDROX/AL HYDROX/SIMETH 30 ML CUP PO PRN (11:40)
[2019-09-11] MEDS ORDERED: SODIUM CHLORIDE 0.9% 1,000 ML IV SCH (11:45)
[2019-09-11 12:10] LABS: Glucose,Whole Blood 91 mg/dL (75-99)
--- NOTE | 2019-09-11 12:10 | CC ---
CARDIAC CATHETERIZATION REPORT DATE OF SERVICE: 09/11/2019 PERFORMING PHYSICIAN: Rosendo Us MD. PROCEDURES PERFORMED: 1. Selective left and right coronary angiogram. 2. CARDOSO to LAD angiogram. 3. SVG to RCA angiogram. 4. Left heart catheterization. 5. Successful stenting of the proximal SVG to RCA using 3.5 x 23 mm Xience drug- eluting stent with a good angiographic result and reduction of stenosis from 99% to 20%. INDICATIONS: This is a pleasant 59-year-old gentleman with history of coronary artery disease and prior coronary artery bypass grafting as well as stenting. His last heart catheterization was performed in 2017 showing at that point severe two-vessel coronary artery disease with patent CARDOSO to LAD and patent stent in the SVG to RCA as well as patent stent in the diagonal of the LAD. This patient presented to the hospital with chest discomfort and underwent a stress test that was abnormal. Because of that, a heart catheterization was advised. APPROACH: Right common femoral artery. COMPLICATIONS: None. LEVEL OF SEDATION: Moderate, with sedation length of 48 minutes. PROCEDURE DESCRIPTION: After obtaining informed consent, the patient was brought to the cardiac pharmaceutical laboratory technician. The right common femoral artery was cannulated using micropuncture technique. The micropuncture wire passed easily. Then I placed a 6-Portuguese sheath 23 cm in the right groin. Selective left and right coronary angiogram was performed using JL4.5 and JR4 catheters. CARDOSO to LAD angiogram was performed using an IM catheter. SVG to RCA angiogram was performed using JR4 catheter. After that I did intervene on the RCA. Please see separate paragraph for that. SELECTIVE CORONARY ANGIOGRAM: 1. Left main is angiographically normal. It bifurcates into LCX and LAD. 2. The LCX is a large-caliber vessel. It does have mild disease only. 3. The LAD. The proximal LAD has mild disease only. The mid LAD is occluded and fills by the CARDOSO. The LAD gives rise to a diagonal branch which is stented, and the stent is patent. 4. The RCA is 100% occluded in the proximal portion. ANGIOGRAM OF CORONARY BYPASSES: 1. SVG to RCA has critical disease which is in-stent restenosis in the proximal portion. 2. The CARDOSO to LAD is patent. HEMODYNAMICS: The LVEDP was 18-20 mmHg. PERCUTANEOUS CORONARY INTERVENTION OF THE SVG TO RCA: Anticoagulation was initiated using Angiomax. Subsequently I did engage the SVG to RCA using a multipurpose catheter. After that I did wire it using a run-through wire. After that I did balloon angioplasty using 3.0 x 10 mm AngioSculpt balloon before I deployed 3.5 x 23 mm Xience JEZ. The stent was positioned under fluoroscopic guidance and deployed under 24 atmospheres for 20 seconds. I post-dilated the stent using 3.75 mm NC balloon. The following angiogram showed excellent angiographic results and the procedure was completed without any complication. CONCLUSION: 1. Occluded LAD. The CARDOSO to LAD is patent. 2. Patent stent in the first diagonal branch of the LAD. 3. Mild disease involving the left circumflex coronary artery. 4. Occluded right coronary artery. The SVG to RCA has severe in-stent restenosis. 5. Successful stenting of the SVG to RCA as described above. POST-PROCEDURE MANAGEMENT: 1. Dual anti-platelet therapy. 2. Risk factor modifications. 3. Follow up with the patient. MMODL / IJN: [id number] /
--- NOTE | 2019-09-11 13:23 | P.PN ---
Progress Note - Text Progress Note Date: 09/11/19 This is a pleasant 59-year-old male past medical history significant for coronary artery disease status post bypass grafting, hypertension, dyslipidemia, diabetes mellitus, bariatric surgery and obesity. He follows in the office with Dr. Us. We have been asked to see in consultation for chest pain. Patient underwent a stress test yesterday which revealed stress-induced changes along the inferior wall. Because of the abnormal stress test the patient was transferred to the cardiac unit. He was seen and examined this morning, experiencing some chest pressure and heaviness. The patient follows with Dr. Mcrae in the office, had a discussion with him this morning regarding the positive stress test, the decision was made to proceed with cardiac catheterization today. The risks and the benefits were explained to the patient in detail. DNP note has been reviewed, I agree with a documented findings and plan of care. Patient was seen and examined.
[2019-09-11] MEDS: MORPHINE SULFATE 4 MG/ML SYRINGE IV PRN ×2 (14:08→18:51)
--- NOTE | 2019-09-11 17:02 | P.PN ---
Subjective Progress Note Date: 09/11/19 Principal diagnosis: Chest pain/unstable angina 59-year-old male patient with history of CAD, status post CABG, hypertension, hyperlipidemia, diabetes who presented to ED with a complaint of chest pain and underwent nuclear stress testing which revealed stressed induced inferior wall changes; patient is evaluated by cardiology and underwent cardiac catheterization showing restenosis of SVG to RCA; patient appointment stent placement; remains stable postprocedure and able to tolerate dual antiplatelet therapy Objective - Vital Signs Vital signs: Vital Signs Temp 97.7 F 09/11/19 08:00 Pulse 60 09/11/19 08:00 Resp 18 09/11/19 08:00 BP 126/63 09/11/19 08:00 Pulse Ox 98 09/11/19 08:00 Intake & Output 09/10/19 09/11/19 09/11/19 18:59 06:59 18:59 Intake Total 240 127 Balance 240 127 Weight 123.5 kg 121.3 kg 121.3 kg Intake: IV 127 Oral 240 Other: Voiding Method Toilet Toilet # Voids 2 1 - Exam PHYSICAL EXAMINATION: GENERAL: The patient is alert and oriented x3, not in any acute distress. Well developed, well nourished. HEENT: Pupils are round and equally reacting to light. EOMI. No scleral icterus. No conjunctival pallor. Normocephalic, atraumatic. No pharyngeal erythema. No thyromegaly. CARDIOVASCULAR: S1 and S2 present. No murmurs, rubs, or gallops. PULMONARY: Chest is clear to auscultation, no wheezing or crackles. ABDOMEN: Soft, nontender, nondistended, normoactive bowel sounds. No palpable organomegaly. MUSCULOSKELETAL: No joint swelling or deformity. EXTREMITIES: No cyanosis, clubbing, or pedal edema. NEUROLOGICAL: Gross neurological examination did not reveal any focal deficits. SKIN: No rashes. - Labs CBC & Chem 7: 09/11/19 06:06 09/09/19 15:15 Labs: Abnormal Lab Results - Last 24 Hours (Table) 09/10/19 09/10/19 09/10/19 Range/Units 07:07 16:43 21:03 WBC (3.8-10.6) k/uL Neutrophils # (1.3-7.7) k/uL POC Glucose (mg/dL) 327 H 231 H (75-99) mg/dL Hemoglobin A1c 9.4 H (4.0-6.0) % 09/11/19 Range/Units 06:06 WBC 12.6 H (3.8-10.6) k/uL Neutrophils # 8.5 H (1.3-7.7) k/uL POC Glucose (mg/dL) (75-99) mg/dL Hemoglobin A1c (4.0-6.0) % Assessment and Plan Assessment: 1. Chest pain, atypical for angina. An acute coronary event has been ruled out. - Pain is atypical for angina given its constant nature with no EKG changes or enzyme elevation. Possibly related to musculoskeletal nature given his history of cervical radiculopathy. We will give one dose of IV Toradol to assess relief. Obtain 2-D echocardiogram and Doppler study to assess cardiac structure and function. Perform Persantine stress test to assess for reversible cardiac ischemia given his significant history of underlying coronary artery disease. If stress test is abnormal we will consider coronary angiography. Add zetia to his daily regimen for optimal LDL of less than 70. 2. History of coronary artery disease status post bypass grafting; patient's last cardiac catheterization wasn't 08/26 and she revealed severe two-vessel CAD; patient currently takes aspirin, Plavix, statin and beta blockers 3. Hypertension; stable on Coreg 3.125 twice a day, Zestoretic 20/25 mg daily 4. Dyslipidemia; patient takes atorvastatin 80 mg daily; cardiology has seen patient and have added Zetia for optimal LDL of less than 70 5. Diabetes mellitus; monitor Accu-Cheks every before meals and at bedtime with insulin sliding scale DVT prophylaxis; SCDs CODE STATUS; full code
[2019-09-11 17:27] LABS: Glucose,Whole Blood 289 mg/dL (75-99)
[2019-09-11 20:50] LABS: Glucose,Whole Blood 247 mg/dL (75-99)
[2019-09-12 06:02] LABS: Basophils # (A) 0.1 k/uL (0-0.2); Basophils % (A) 1 %; Eosinophils # (A) 0.2 k/uL (0-0.7); Eosinophils % (A) 2 %; HCT 45.2 % (39.0-53.0); HGB 15.1 gm/dL (13.0-17.5); Lymphocytes # (A) 2.3 k/uL (1.0-4.8); Lymphocytes % (A) 28 %; MCH 30.4 pg (25.0-35.0); MCHC 33.5 g/dL (31.0-37.0); MCV 90.7 fL (80.0-100.0); Monocytes # (A) 0.6 k/uL (0-1.0); Monocytes % (A) 7 %; Neutrophils # (A) 4.8 k/uL (1.3-7.7); Neutrophils % (A) 60 %; Platelet Count 224 k/uL (150-450); RBC 4.98 m/uL (4.30-5.90); RDW 12.6 % (11.5-15.5)
[2019-09-12 06:15] LABS: African American GFR (CKD) >90 (>60 ml/min/1.73 sqM); Anion Gap 7 mmol/L; Blood Urea Nitrogen 20 mg/dL (9-20); Calcium 9.1 mg/dL (8.4-10.2); Carbon Dioxide 24 mmol/L (22-30); Chloride 105 mmol/L (98-107); Glucose 172 mg/dL (74-99); Non-African American GFR(CKD) >90 (>60 ml/min/1.73 sqM); Sodium 136 mmol/L (137-145)
[2019-09-12 06:54] LABS: Glucose,Whole Blood 153 mg/dL (75-99)
[2019-09-12] MEDS: INSULIN DETEMIR (LEVEMIR) 100 UNIT/ML SYR SQ SCH (07:08)
[2019-09-12] MEDS: CARVEDILOL 3.125 MG TAB PO SCH (07:08)
[2019-09-12] MEDS: INSULIN ASPART (NovoLOG) 100 UNIT/ML VIAL SQ SCH ×2 (07:08→12:33)
[2019-09-12] MEDS: ASPIRIN 81 MG PO SCH (10:11)
[2019-09-12] MEDS: ATORVASTATIN 80 MG TAB PO SCH (10:12)
[2019-09-12] MEDS: LISINOPRIL-HCTZ 20-25 MG 1 EACH TAB PO SCH (10:12)
[2019-09-12] MEDS: CLOPIDOGREL 75 MG TAB PO SCH (10:12)
[2019-09-12] MEDS: EZETIMIBE 10 MG TAB PO SCH (10:12)
[2019-09-12 11:57] LABS: Glucose,Whole Blood 221 mg/dL (75-99)
--- NOTE | 2019-09-12 12:27 | P.PN ---
Subjective Progress Note Date: 09/12/19 This is a pleasant 59-year-old male past medical history significant for coronary artery disease status post bypass grafting, hypertension, dyslipidemia, diabetes mellitus, bariatric surgery and obesity. He follows in the office with Dr. Us. Presented to the hospital with symptoms of chest d iscomfort, underwent a stress test which revealed an area of reversible ischemia and patient was advised to undergo cardiac catheterization. Cardiac catheterization was performed yesterday by Dr. Mcrae, subsequently patient underwent successful stenting of the proximal SVG to the RCA. He was seen and examined this morning, denied any chest pain or difficulty in breathing. He's been up ambulating without any difficulty. Blood pressure 124/60 with a heart rate in the 70s, 97% on room air. White blood cell count is normal, hemoglobin 15.1, platelet count 224. Sodium 136, potassium 4.0, BUN 20, creatinine 0.7. Objective - Vital Signs Vital signs: Vital Signs Temp 97.9 F 09/12/19 08:00 Pulse 73 09/12/19 08:00 Resp 18 09/12/19 08:00 BP 124/66 09/12/19 08:00 Pulse Ox 97 09/12/19 08:00 Intake & Output 09/11/19 09/12/19 09/12/19 18:59 06:59 18:59 Intake Total 487 240 Balance 487 240 Weight 121.3 kg 131.3 kg Intake: IV 127 Oral 360 240 Other: Voiding Method Toilet # Voids 1 1 - Exam CONSTITUTIONAL: No apparent distress. Obese. HEENT: Head is normocephalic. Pupils are equal, round. Sclerae anicteric. Mucous membranes of the mouth are moist. No JVD. No carotid bruit. CHEST EXAMINATION: Lungs are clear to auscultation. No chest wall tenderness is noted on palpation or with deep breathing. HEART EXAMINATION: Regular rate and rhythm. S1, S2 heard. No murmurs, gallops or rub. ABDOMEN: Soft, nontender. Positive bowel sounds. EXTREMITIES: 2+ peripheral pulses, no lower extremity edema and no calf tenderness. Right groin soft, no evidence of any hematoma. NEUROLOGIC EXAMINATION: Patient is awake, alert and oriented x3. - Labs CBC & Chem 7: 09/12/19 05:42 09/12/19 05:42 Labs: Abnormal Lab Results - Last 24 Hours (Table) 09/11/19 09/11/19 09/12/19 Range/Units 17:06 20:46 05:42 Sodium 136 L (137-145) mmol/L Glucose 172 H (74-99) mg/dL POC Glucose (mg/dL) 289 H 247 H (75-99) mg/dL 09/12/19 09/12/19 Range/Units 06:51 11:54 Sodium (137-145) mmol/L Glucose (74-99) mg/dL POC Glucose (mg/dL) 153 H 221 H (75-99) mg/dL Assessment and Plan Plan: ASSESSMENT and plan #1 Chest pain, positive stress test,, status post successful stenting of the proximal SVG to the RCA #2 History of coronary artery disease status post bypass grafting #3 Hypertension #4Dyslipidemia #5 Diabetes mellitus Plan Patient may be discharged home today from cardiology's perspective, we'll make him a follow-up appointment to see Dr. Mcrae in the office post discharge. DNP note has been reviewed, I agree with a documented findings and plan of care. Patient was seen and examined.
[2019-09-12 12:34] VITALS: BP 144/69; PULSE 69; TEMP 98
--- NOTE | 2019-09-12 15:47 | P.DS ---
Providers Date of admission: 09/11/19 08:23 Expected date of discharge: 09/12/19 Attending physician: Myranda Clay Consults: 09/09/19 16:59 Consult Physician Routine Consulting Provider: Rosendo Us Consult Reason/Comments: CP, history of CAD Do you want consulting provider notified?: Yes 09/11/19 11:40 Consult Physician Routine Consulting Provider: [facility] Consult Reason/Comments: Post Interventional patient Do you want consulting provider notified?: Already Contacted Primary care physician: [place] [facility] Course: 59-year-old male past medical history significant for coronary artery disease status post bypass grafting, hypertension, dyslipidemia, diabetes mellitus, bariatric surgery and obesity. He follows in the office with Dr. Us. Presented to the hospital with symptoms of chest discomfort, underwent a stress test which revealed an area of reversible ischemia and patient was advised to undergo cardiac catheterization. Cardiac catheterization was performed yesterday by Dr. Mcrae, subsequently patient underwent successful stenting of the proximal SVG to the RCA. He was seen and examined this morning, denied any chest pain or difficulty in breathing. He's been up ambulating without any difficulty. Blood pressure 124/60 with a heart rate in the 70s, 97% on room air. White blood cell count is normal, hemoglobin 15.1, platelet count 224. Sodium 136, potassium 4.0, BUN 20, creatinine 0.7. Patient Condition at Discharge: Stable Plan - Discharge Summary Discharge Rx Participant: No New Discharge Prescriptions: New Ezetimibe [Zetia] 10 mg PO DAILY #30 tab Continue Carvedilol [Coreg] 3.125 mg PO BID Insulin Glargine [Lantus] 80 unit SQ BID Atorvastatin [Lipitor] 80 mg PO HS Loratadine [Claritin] 10 mg PO DAILY Lisinopril-Hctz 20-25 mg [Zestoretic 20-25] 1 tab PO DAILY Aspirin EC [Ecotrin Low Dose] 162 mg PO DAILY Clopidogrel [Plavix] 75 mg PO DAILY Sildenafil Citrate 100 mg PO DAILY PRN PRN Reason: E.D. Discharge Medication List Carvedilol [Coreg] 3.125 mg PO BID 06/05/15 [History] Insulin Glargine [Lantus] 80 unit SQ BID 07/26/15 [History] Atorvastatin [Lipitor] 80 mg PO HS 10/22/16 [History] Aspirin EC [Ecotrin Low Dose] 162 mg PO DAILY 09/09/19 [History] Clopidogrel [Plavix] 75 mg PO DAILY 09/09/19 [History] Lisinopril-Hctz 20-25 mg [Zestoretic 20-25] 1 tab PO DAILY 09/09/19 [History] Loratadine [Claritin] 10 mg PO DAILY 09/09/19 [History] Sildenafil Citrate 100 mg PO DAILY PRN 09/09/19 [History] Ezetimibe [Zetia] 10 mg PO DAILY #30 tab 09/10/19 [Rx] Follow up Appointment(s)/Referral(s): Rosendo Us MD [STAFF PHYSICIAN] - 1 Week (Please call office when open) [facility] [Primary Care Provider] - 1-2 days (Please call office when open) Patient Instructions/Handouts: Heart Catheterization (GEN) Discharge Disposition: HOME SELF-CARE
== END 2019-09-12 14:50 | disposition home or self-care (01) | DRG 247 ==
LOC: EC 15:03 → 1SOBS 16:58 → 3SCARD 09-10 17:36 → OBSVTOIN 09-11 08:23
PROVIDERS: ADMIT Internal Medicine; ATTEND Internal Medicine
PROC: B2101ZZ Fluoroscopy of Single Coronary Artery using Low Osmolar Contrast (ICD-10-PCS; principal; 2019-09-11 10:00)
PROC: B2131ZZ Fluoroscopy of Multiple Coronary Artery Bypass Grafts using Low Osmolar Contrast (ICD-10-PCS; principal; 2019-09-11 10:00)
PROC: 4A023N7 Measurement of Cardiac Sampling and Pressure, Left Heart, Percutaneous Approach (ICD-10-PCS; principal; 2019-09-11 10:00)
PROC: 027034Z Dilation of Coronary Artery, One Artery with Drug-eluting Intraluminal Device, Percutaneous Approach (ICD-10-PCS; principal; 2019-09-11 10:00)
DX: I25.10 Atherosclerotic heart disease of native coronary artery without angina pectoris (principal); T82.855A Stenosis of coronary artery stent, initial encounter; Y83.1 Surgical operation with implant of artificial internal device as the cause of abnormal reaction of the patient, or of later complication, without mention of misadventure at the time of the procedure; M19.90 Unspecified osteoarthritis, unspecified site; E11.9 Type 2 diabetes mellitus without complications; E78.5 Hyperlipidemia, unspecified; F17.200 Nicotine dependence, unspecified, uncomplicated; I10 Essential (primary) hypertension; J44.9 Chronic obstructive pulmonary disease, unspecified; I25.82 Chronic total occlusion of coronary artery; M54.12 Radiculopathy, cervical region; Z79.4 Long term (current) use of insulin; I25.2 Old myocardial infarction; Z95.5 Presence of coronary angioplasty implant and graft; Z79.82 Long term (current) use of aspirin; Z79.02 Long term (current) use of antithrombotics/antiplatelets; Z79.899 Other long term (current) drug therapy; Z95.1 Presence of aortocoronary bypass graft; Z80.8 Family history of malignant neoplasm of other organs or systems; Z88.5 Allergy status to narcotic agent; Z88.8 Allergy status to other drugs, medicaments and biological substances
CPT/HCPCS: 36415; 71046; 78452; 80048; 80053; 80061; 83036; 83735; 83880; 84484; 85025; 85379; 85610; 85730; 93005; 93017; 93306; 93458; 94640; 96374; 96375; 99285

== ENCOUNTER 2022-06-03 06:48 | Day surgery (SDC) | payer BC ==
[~2022-06-03 06:48] MED LIST changes: +ALPRAZolam 0.25 MG TAB PO PRN; +ALPRAZolam 0.5 MG TAB PO PRN; +ASPIRIN 325 MG TAB PO STA; +ATORVASTATIN 80 MG TAB PO STA; -BUPIVACAINE (PF) 0.5% 30 ML VIAL SQ ONE; -DEXAMETHASONE SOD PHOS (MDV) 100 MG/10 ML VIAL ONE; -DEXAMETHASONE SOD PHOSPHATE 10 MG/ML 1 ML VIAL IV ONE; -DEXAMETHASONE SOD PHOSPHATE 4 MG/ML 1 ML VIAL IV ONE; -EPINEPHrine 1 MG/ML (MDV) 30 ML VIAL TOPICAL ONE; -FAMOTIDINE 20 MG/2 ML VIAL IV ONE; -FLUORESCEIN STRIPS 1 MG STRIP MISCELLANE ONE; +HEPARIN SODIUM,PORCINE 10,000 UNIT in SODIUM CHLORIDE 0.9% 1,000 ML IRRIGATION PRN; +HEPARIN SODIUM,PORCINE 2,500 UNIT in SODIUM CHLORIDE 0.9% 250 ML IRRIGATION PRN; -HYDROmorphone 0.5 MG/0.5 ML SYRINGE IVP PRN; -LACTATED RINGERS 1,000 ML IV ONE; -LACTATED RINGERS 1,000 ML IV SCH; -LIDOCAINE 1% 20 ML VIAL (10MG/ML) FOR IV START INTRADERMA ONE; -LIDOCAINE 1% INJ 10MG/ML (20 ML MDV) ONE; -LIDOCAINE 1%-EPI 1:100,000 20 ML VIAL SQ ONE; -MIDAZOLAM 2 MG/2 ML VIAL ONE; -ONDANSETRON 4 MG/2 ML VIAL IVP ONE; -PROPOFOL 10 MG/ML 20 ML VIAL IV ONE; -Pre Op ABX Message 1 EACH MISC MISCELLANE ONE; -SUCCINYLCHOLINE CHLORIDE VIAL 200 MG/10 ML VIAL IV ONE; -ePHEDrine SULFATE/0.9% NACL/PF 50 MG/5 ML SYRINGE IV ONE; -fentaNYL (PF) 50 MCG/ML 2 ML AMP ONE
[2022-06-03 07:53] LABS: Glucose,Whole Blood 127 mg/dL (70-110)
[2022-06-03 07:58] LABS: Basophils # (A) 0.1 k/uL (0-0.2); Basophils % (A) 1 %; Eosinophils # (A) 0.2 k/uL (0-0.7); Eosinophils % (A) 2 %; HCT 48.6 % (39.0-53.0); HGB 16.7 gm/dL (13.0-17.5); Lymphocytes % (A) 22 %; MCH 31.7 pg (25.0-35.0); MCHC 34.4 g/dL (31.0-37.0); MCV 92.2 fL (80.0-100.0); Mean Platelet Volume 7.3; Monocytes # (A) 0.7 k/uL (0-1.0); Monocytes % (A) 7 %; Neutrophils # (A) 6.3 k/uL (1.3-7.7); Neutrophils % (A) 68 %; Platelet Count 224 k/uL (150-450); RBC 5.27 m/uL (4.30-5.90); RDW 12.9 % (11.5-15.5); WBC 9.3 k/uL (3.8-10.6)
[2022-06-03] MEDS ORDERED: carvediloL 3.125 MG TAB PO STA (08:01)
[2022-06-03] MEDS ORDERED: LISINOPRIL-HCTZ 20-25 MG 1 EACH TAB PO STA (08:04)
[2022-06-03] MEDS: SODIUM CHLORIDE 0.9% 1,000 ML in EMPTY BAG 1 BAG IV SCH ×2 (08:09→17:05)
[2022-06-03 08:47] LABS: African American GFR (CKD) >90 (>60 ml/min/1.73 sqM); Anion Gap 5 mmol/L; Blood Urea Nitrogen 12 mg/dL (9-20); Calcium 8.8 mg/dL (8.4-10.2); Carbon Dioxide 27 mmol/L (22-30); Chloride 105 mmol/L (98-107); Glucose 123 mg/dL (74-99); Non-African American GFR(CKD) >90 (>60 ml/min/1.73 sqM); Potassium 3.9 mmol/L (3.5-5.1); Sodium 137 mmol/L (137-145)
[2022-06-03] MEDS ORDERED: HEPARIN SODIUM 1,000 UN/ML (10ML VL) ONE (08:53)
[2022-06-03] MEDS ORDERED: VERAPAMIL 2.5 MG/ML 2 ML AMP ONE (08:54)
[2022-06-03] MEDS ORDERED: fentaNYL (PF) 50 MCG/ML 2 ML AMP ONE (09:31)
[2022-06-03] MEDS ORDERED: fentaNYL (PF) 50 MCG/ML 2 ML AMP IV ONE (09:32)
[2022-06-03] MEDS ORDERED: MIDAZOLAM 2 MG/2 ML VIAL IV ONE (09:32)
[2022-06-03] MEDS ORDERED: LIDOCAINE 1% INJ 10MG/ML (30 ML VIAL-PF) SQ ONE (09:33)
[2022-06-03] MEDS ORDERED: IOPAMIDOL-370 125ML BTL INJ ONE ×2 (09:58→11:06)
[2022-06-03] MEDS ORDERED: MIDAZOLAM 2 MG/2 ML VIAL IVP ONE ×2 (10:12→11:01)
[2022-06-03] MEDS ORDERED: HEPARIN SODIUM 1,000 UN/ML (10ML VL) IVP ONE ×2 (10:17→10:51)
[2022-06-03] MEDS ORDERED: fentaNYL (PF) 50 MCG/ML 2 ML AMP IVP ONE (11:01)
[2022-06-03] MEDS ORDERED: RX INFO: IV CONTRAST WAS GIVEN 1 EACH MISC MISCELLANE PRN (11:11)
[2022-06-03] MEDS ORDERED: SODIUM CHLORIDE 0.9% 1,000 ML IV SCH (11:15)
--- NOTE | 2022-06-03 11:16 | P.PCN ---
Date of Procedure: 06/03/22 Operative Findings: CARDIAC CATHETERIZATION PERFORMING PHYSICIAN: Rosendo Us MD, RPVI PROCEDURE PERFORMED: 1. Selective right and left coronary angiogram 2. Left heart catheterization 3. CARDOSO to LAD angiogram 4. SVG to RCA angiogram 5. FFR of the LAD 6. Attempted PTCA of the right coronary artery 7. Ultrasound-guided access of the right common femoral artery 8. Selective right common femoral artery angiogram INDICATION: This is a 61-year-old gentleman with coronary artery disease and prior coronary artery bypass grafting with CARDOSO to LAD and SVG to RCA and also known stenting of the distal SVG to right coronary artery was seen in the office recently for chest discomfort concerning for angina and in the light of that a heart catheterization was advised COMPLICATION: None APPROACH: Right common femoral artery LEVEL OF SEDATION: Moderate with sedation length of 93 minutes PROCEDURE DESCRIPTION: After obtaining an informed consent, the patient was brought to cardiac laboratory animal facility supervisor. Local anesthesia was performed using lidocaine subcutaneously. The right common femoral artery was cannulated using Seldinger technique, the guidewire passed easily, following that we advanced a 6 Bulgarian sheath dilator assembly, the wire and dilator were removed and sheath was flushed. Selective right and left coronary angiogram using a 6-Bulgarian JR4 and JL cathete rs. Following that we did left heart catheterization using 6-Bulgarian pigtail catheter. The procedure was completed there was no complication. SELECTIVE CORONARY ANGIOGRAM: The right coronary artery: Large caliber vessel and a dominant vessel. The RCA is occluded in the midportion Left main: Has mild disease only. Bifurcates into LCx and LAD The left circumflex: Large caliber vessel appears to have mild diffuse disease only The left anterior descending artery: In the proximal LAD has intermediate lesion in the midportion appears to be in the range of 50%. FFR was performed and came in to be nonischemic and 0.85. The mid LAD is occluded. Coronary bypasses angiogram, The CARDOSO into LAD is patent The SVG to RCA is occluded FFR of the LAD and PTCA of the RCA: After anticoagulation was initiated using heparin were continuous ACT monitoring and after zeroing the Doppler wire and equalizing between the Doppler wire and the guiding catheter I did an FFR her IV adenosine infusion and that came in to be nonischemic a 0.85. I used a JL4 guiding catheter. After that I engaged the right coronary artery using a nail 0.75 guiding catheter. I attempted crossing the CT of the RCA using only one wire which was a whisper wire and that was unsuccessful. I did decided to stop at that point. HEMODYNAMICS: The LVEDP was 8 mmHg was no significant gradient across aortic valve CONCLUSION: 1. Occluded mid LAD. The CARDOSO to LAD is patent. The LAD in the proximal portion has intermediate lesion gives rises into a large diagonal branch. FFR was performed and came in to be nonischemic 2. Mild diffuse disease involving the LCx system 3. Occluded right coronary artery. The SVG to RCA is occluded POSTPROCEDURE MANAGEMENT: Medical treatment and consider PCI of the MAINTENANCE SHOP CLERK of the RCA the patient remains symptomatic
[2022-06-03 16:27] VITALS: TEMP 97.6
[2022-06-03 16:49] VITALS: BP 119/72; PULSE 70; RESP 18
== END 2022-06-03 20:38 | disposition home or self-care (01) ==
LOC: CATHCVL 06:48 → 6NMEDSUR 13:53 → CATHCVL 20:38
PROVIDERS: ATTEND Internal Medicine Interventional Cardiology
DX: I25.10 Atherosclerotic heart disease of native coronary artery without angina pectoris (principal); I10 Essential (primary) hypertension; E78.5 Hyperlipidemia, unspecified; E11.9 Type 2 diabetes mellitus without complications; F17.210 Nicotine dependence, cigarettes, uncomplicated; Z79.82 Long term (current) use of aspirin; Z79.899 Other long term (current) drug therapy; Z95.1 Presence of aortocoronary bypass graft; Z95.5 Presence of coronary angioplasty implant and graft
CPT/HCPCS: 93571; 93459; 80048; 85025; C1769 ×6; C1887 ×6; C1894 ×2; J2250; J2001; J3010; J1644; Q9967